=== PATIENT | female | born 1930 | race African-American/Black ===

== ENCOUNTER 2019-07-25 18:01 | Inpatient (IN) | payer OTHER ==
[~2019-07-25] VITALS: Ht 160 cm; Wt 58.4 kg
--- NOTE | ~2019-07-25 | HC ---
[facility] [place] [address] CONSULTATION Name: NADER BOYD Room #: 219-P [facility] IN M.R.#: [id number] Admission: 07/25/19 Attend Phys: Radhames Hyde MD Discharge: Date of : 32 Report #: [id number] THIS REPORT FOR: cc: Ra Landaverde MD, Keninde A. MD Al-Demetrice,Moraima Thornton MD ~ CC: Radhames Landaverde DATE OF SERVICE: 07/26/2019 REASON FOR CONSULTATION: End-stage renal disease. CHIEF COMPLAINT: Chest pain. HISTORY OF PRESENT ILLNESS: This is a very well-known patient to me. She is on end-stage renal disease patient who is maintained on hemodialysis every Tuesday, Tuesday and Tuesday. She is also known to have multiple other comorbid conditions including coronary artery disease. Most of her hospitalizations are at [facility]. She gave the ER physicians history of chest pain; however, she completely denies chest pain when I met with her this morning. She reported that she had dialysis yesterday with 3.5 liters of fluid removed. She went home and had significant dizziness, lightheadedness, symptoms of hypotension. She presented for further evaluation. She denies syncope. No fever or chills. PAST MEDICAL HISTORY: 1. End-stage renal disease, maintained on hemodialysis every Tuesday, Tuesday and Tuesday. 2. Coronary artery disease. 3. Hypertension. 4. Hyperlipidemia. 5. Diabetes mellitus. 6. Status post CVA. 7. Status post left AV fistula with multiple interventions and stents in the past. ALLERGIES: None. REVIEW OF SYSTEMS: GENERAL: No fever or chills, but significant weakness. CARDIOVASCULAR: No chest pain or palpitation. However, she did report chest pain to the ER physician. PULMONARY: No cough or hemoptysis. GASTROINTESTINAL: No nausea or vomiting. GENITOURINARY: No frequency, no urgency. [facility] [address] [place] [address] CONSULTATION Name: NADER BOYD Room #: 219-[facility] IN M.R.#: [id number] Admission: 07/25/19 Attend Phys: Radhames Hyde MD Discharge: Date of : 32 Report #: [id number] MUSCULOSKELETAL: Occasional arthralgias and back pain. NEUROLOGICAL: Significant for headache and lightheadedness. SOCIAL HISTORY: Denies drug or alcohol abuse. Ex-smoker. FAMILY HISTORY: Hypertension. MEDICATIONS: Reported: 1. Atorvastatin. 2. Amlodipine. PHYSICAL EXAMINATION: GENERAL: The patient is alert, oriented, in no apparent distress. VITAL SIGNS: Blood pressure is 114/51. HEAD AND NECK: No jugular venous distention. CHEST: Decreased air entry bilaterally. No crackles. CARDIOVASCULAR: Regular with no rub. Systolic murmur is present. ABDOMEN: Soft, nontender with no hepatosplenomegaly. EXTREMITIES: Lower extremities, no edema. Upper extremities: Left AV fistula. LABORATORY DATA: Values reviewed. Hemoglobin is 11.7. Sodium is 133, potassium is 3.9, BUN is 17, creatinine is 4.6. Chest x-ray reviewed, no acute abnormality. ASSESSMENT, IMPRESSION AND PLAN: 1. End-stage renal disease. 2. Hypertension. 3. Coronary artery disease. 4. The patient's symptoms are likely related to aggressive ultrafiltration with hemodialysis. Troponin has been negative x 3. 5. Obtain her cardiac history from the [facility]. 6. From the renal perspective, I will continue with hemodialysis every Tuesday, Tuesday and Tuesday. By: 0822 0833 Moraima Gill MD /nt
--- NOTE | ~2019-07-25 | EMS ---
[facility] [address] [place] [address] EMS Patient Care Report Name: CHANELLE BOYD Room #: PRE M.R.#: [id number] Admission: Attend Phys: Discharge: Date of : 32 Report #: [id number] THIS REPORT FOR: //name// Report Transmitted: 07/25/2019 17:43 EMS Care Summary [place], [place]/[facility] Incident [id number] @ 07/25/2019 17:24 Incident Location [address] Patient CHANELLE BOYD Female, 88 Years 1930 Patient Address [address] [place] [address] Patient History Hypertension (HTN),Stroke/CVA,Hyperlipidemia,Coronary Artery Bypass Graft (CABG), Patient Allergies No known allergies, Patient Medications Amlodipine, Atorvastatin, Chief Complaint chest pain Disposition Transported No Lights/[place] Dispatch Reason Chest Pain (Non-Traumatic) Transported To [facility] Narrative aos to find a female pt aaox4 abc intact. pt has c/c of chest pain x 1 hour that she described as "strong" and "it feels like my last heart attack". pt [facility] [address] [place] [address] EMS Patient Care Report Name: CHANELLE BOYD Room #: PRE ER M.R.#: [id number] Admission: Attend Phys: Discharge: Date of : 32 Report #: [id number] stated hx of CA, CABG, stroke. obtained vital signs. administered aspirin PO. acquired 12 lead ekg sinus tachycardia w/o ST elevation or depression. pt placed on stretcher and loaded into medic unit. administered nitroglycerin SL. iv access obtained 22 gauge in the right hand. pt transported non-urgently to [facility] pt condition improved en route. upon arrival pt brought to er and pt care was transferred to receiving staff sonographer. Initial Vitals @17:53P: 110, @17:47P: 103, @17:51P: 99, @17:48P: 100,BP: 147/66, @17:53P: 112,BP: 138/56, @17:48P: 103, @17:55P: 106,R: 18,BP: 114/60,Pain: 7/10,GCS: 15,Revised Trauma: 12, @17:38P: 120,R: 18,Pain: 8/10,GCS: 15,Glucose: 257, Assessments @17:31MENTAL:Person Oriented,Time Oriented,Event Oriented,Place Oriented,SKIN:HEENT:Head/Face: No Abnormalities,Neck/Airway: No Abnormalities,LUNG SOUNDS:General: No Abnormalities,ABDOMEN:General: No Abnormalities,PELVIS//GI:No Abnormalities,EXTREMITIES:Left Arm: No Abnormalities,Right Arm: No Abnormalities,Left Leg: No Abnormalities,Right Leg: No Abnormalities,PULSE:NEURO:No Abnormalities, Impression Chest Pain / Discomfort Procedures @17:31ALS AssessmentResponse: UnchangedSucceeded@17:32Aspirin - 324 Milligrams (mg) - OralResponse: Unchanged@17:383-Lead ECGResponse: UnchangedSucceeded@17:42Nitrostat - 0.4 Milligrams (mg) - SublingualResponse: Improved@17:3812-Lead ECGResponse: UnchangedSucceeded@17:50Saline Lock 10cc (22 ga) Site: Hand-RightResponse: UnchangedSucceeded Timeline 17:23,Call Received 17:23,Dispatch Notified 17:24,Dispatched 17:25,En Route 17:30,On Scene 17:31,At Patient 17:31,ALS Assessment,Response: UnchangedSucceeded, 17:32,Aspirin - 324 Milligrams (mg) - Oral,Response: Unchanged 17:38,3-Lead ECG,Response: UnchangedSucceeded, 17:38,12-Lead ECG,Response: UnchangedSucceeded, [facility] [address] [place] [address] EMS Patient Care Report Name: CHANELLE BOYD Room #: PRE M.R.#: [id number] Admission: Attend Phys: Discharge: Date of : 32 Report #: [id number] 17:38,BP: / M,PULSE: 120,RR: 18 R,SPO2: Ox,ETCO2: ,B,PAIN: 8,GCS: 15, 17:42,Nitrostat - 0.4 Milligrams (mg) - Sublingual,Response: Improved 17:47,BP: / M,PULSE: 103,RR: R,SPO2: Ox,ETCO2: ,BG: ,PAIN: ,GCS: , 17:48,BP: / M,PULSE: 103,RR: R,SPO2: Ox,ETCO2: ,BG: ,PAIN: ,GCS: , 17:48,BP: 147/66 M,PULSE: 100,RR: R,SPO2: Ox,ETCO2: ,BG: ,PAIN: ,GCS: , 17:50,Saline Lock 10cc 22 ga Site: Hand-Right,Response: UnchangedSucceeded, 17:50,Depart Scene 17:51,BP: / M,PULSE: 99,RR: R,SPO2: Ox,ETCO2: ,BG: ,PAIN: ,GCS: , 17:53,BP: 138/56 M,PULSE: 112,RR: R,SPO2: Ox,ETCO2: ,BG: ,PAIN: ,GCS: , 17:53,BP: / M,PULSE: 110,RR: R,SPO2: Ox,ETCO2: ,BG: ,PAIN: ,GCS: , 17:55,BP: 114/60 M,PULSE: 106,RR: 18 R,SPO2: Ox,ETCO2: ,BG: ,PAIN: 7,GCS: 15, 17:55,At Destination 18:23,Call Closed Disclaimer v1.1 Copyright 2020 [employer] This EMS Care Summary contains data elements from the applicable legal record (which may be displayed differently). It is designed to provide pertinent information for the following purposes: continuity of care, clinical quality, and state data reporting. The complete legal record is available to ED staff and administrators of the receiving hospital in [employer]'s Patient Tracker. All data is provided "as is."
[2019-07-25 18:36] LABS: HEMOGLOBIN 11.7 gm/dL (12.0-15.0); MCH 28.2 pg (26.0-34.0); MCHC 32.6 g/dL (28.0-37.0); MCV 86.5 fL (80.0-100.0); PLATELET COUNT 187 thou/uL (150-400); RBC 4.16 mil/uL (4.20-5.00); RDW 15.5 % (10.5-14.5); WBC 5.5 thou/uL (4.0-11.0)
[2019-07-25 18:43] LABS: ANION GAP 6 mmol/L (7-16); BUN 17 mg/dL (7-18); CALCIUM 8.5 mg/dL (8.5-10.1); CHLORIDE 94 mmol/L (98-107); CO2 33 mmol/L (21-32); CREATININE 4.6 mg/dL (0.6-1.0); GLUCOSE 140 mg/dL (74-106); POTASSIUM 3.9 mmol/L (3.5-5.1); SODIUM 133 mmol/L (136-145)
[2019-07-25 18:53] LABS: ALBUMIN 3.2 g/dL (3.4-5.0); SGOT 20 U/L (15-37); SGPT 8 U/L (30-65); TOTAL BILIRUBIN 0.4 mg/dL (<0.1-1.0); TOTAL PROTEIN 7.9 g/dL (6.4-8.2); TROPONIN-I <0.06 ng/mL (<0.06)
[2019-07-25 19:00] LABS: ABSOLUTE NEUTROPHILS 2.8 thou/uL (1.4-8.2); PLATELET ESTIMATE NORMAL
[2019-07-25 20:53] VITALS: BP 136/46
[2019-07-25 22:06] LABS: TSH 6.25 uIU/mL (0.358-3.740)
[2019-07-26] VITALS: BP 108/44
[2019-07-26 00:36] LABS: CHOLESTEROL 181 mg/dL (<200); HDL CHOLESTEROL 52 mg/dL (>40); LDL CHOLESTEROL 111 mg/dL (<100); TC:HDL 3.5 Ratio (Not establshd); TRIGLYCERIDE 93 mg/dL (<150); TROPONIN-I <0.06 ng/mL (<0.06); VLDL 19 mg/dL (<40)
[2019-07-26 00:40] LABS: SERUM ASSESSMENT Clear
[2019-07-26] MEDS ORDERED: LIPITOR10 MG PO (01:21)
[2019-07-26] MEDS ORDERED: NORVASC 2.5 MG2.5 M1 PO (01:23)
[2019-07-26 04:43] VITALS: BP 114/51
--- NOTE | 2019-07-26 06:17 | NUR ---
ASSESSMENTS CHARTED, MEDS CHARTED GIVEN. PATIENT ARRIVED AT 2100 FROM ED. PATIENT SETTLED INTO BED, LUNCH BOX GIVEN. PATIENT ADMISSION WAS COMPLETED EXCEPT FOR MED RECONCILIATION THE PATIENT DOES NOT NOT WHAT MEDS SHE TAKES. THE PHOTOCOPYING EQUIPMENT MECHANIC PLACED A MISC. NOTE FOR THE DAY NURSE TO SPEAK WITH FAMILY ABOUT HER MEDS. C/O CHEST PAIN AFTER COUGHING. PATIENT HAS 1/2 INCH OF NITRO PASTE. ED HAS REQUESTED MEDICAL RECORDS FROM [facility] WHERE THE PATIENT NORMALLY GOES. UP AT WILI IN ROOM.
[2019-07-26 08:00] VITALS: BP 106/56
--- NOTE | 2019-07-26 08:37 | EKG ---
[facility] [place] [address] [place] [address] ELECTROCARDIOGRAM REPORT Name: NADER BOYD Room #: 219-P ADM IN M.R.#: [id number] Admission: 07/25/19 Attend Phys: Radhames Hyde MD Discharge: Date of : 32 Report #: [id number] THIS REPORT FOR: cc: Ra Landaverde MD, Keninde A. MD Lundgren,Shant Mares MD [facility] ~ THIS REPORT FOR: //name// [facility] ED Test Date: 2019-07-25 Test Time: 18:04:00 Pat Name: NADER BOYD Department: Room: 219 Gender: F Director Speech: jg : 1930 Requested By: Ana Jones Order Number: [id number] MD: Shant Gonzalez Measurements Intervals [place] Rate: 95 P: 90 [place]: 147 QRS: 54 QRSD: 80 T: 20 QT: 336 QTc: 423 Interpretive Statements Sinus rhythm Frequent premature ventricular complexes Probable anteroseptal infarct, old Borderline repolarization abnormality No previous ECG available for comparison Electronically Signed On 07-26-2019 8:36:31 DIRECTOR OF SUSTAINABLE DESIGN by Shant Gonzalez [email or web address] <ELECTRONICALLY SIGNED> By: Shant Gonzalez MD, [facility] 07/26/19 0836 1804 1804 Shant Gonzalez MD, [facility] /EPI
--- NOTE | 2019-07-26 10:36 | NUR ---
ASSUMED CARE OF PT AT SHIFT CHANGE. A&0X4, AMB INDEPENDENTLY AND STEADILY. USES CALL LIGHT FOR NEEDS. IV LEAKING, CALLED IV TEAM NONE OF THE STAFF COULD RE-START; DIALYSIS PT. BECAME NPO IMMEDIATELY FOR STRESS TEST THEN CALLED TO LET THEM KNOW IV TEAM WOULD BE BY THIS AFTERNOON TO RESTART IV. THEY RESCHEDULED HER FOR A.M. NPO P 23:55 THIS EVENING. CALLED CARDIOLOGY TO GIVE HEADS UP. DISCOVERED, WHEN I PRINTED TELE STRIP, PT HAS ROOM #200 TELE BOX. ALSO DISCOVERED PT WAS NEEDING TO BE MOVED TO ROOM 217. PT KEPT ABREAST OF EVENTS/CHANGES. CAN EAT NOW AND WILL UPON RETURN FROM ECHO. SEE SEPARATE INTERVENTIONS FOR ASSESSMENTS. ENCOURAGED HER TO USE CALL LIGHT FOR ANY NEEDS. DIALYSIS PT , , AND TUESDAY.
--- NOTE | 2019-07-26 11:13 | 2DMMODE ---
[facility] [place] [address] 2 D/M-MODE ECHOCARDIOGRAM Name: NADER BOYD Room #: 219-P ADM IN M.R.#: [id number] Admission: 07/25/19 Attend Phys: Radhames Hyde MD Discharge: Date of : 32 Report #: [id number] THIS REPORT FOR: cc: Ra Landaverde MD, Keninde A. MD Lammoglia, Francisco J. MD ~ APPROVED REPORT Study performed: 07/26/2019 09:55:24 EXAM: Comprehensive 2D, Doppler, and color-flow Echocardiogram Patient Location: Echo lab Room #: 219 Status: routine BSA: 1.61 HR: 69 bpm BP: 114/51 mmHg Rhythm: NSR/ PVCs Other Information Study Quality: Excellent Indications Chest Pain Hx: CABG, HTN, HLP, COPD, CVA 2D Dimensions RVDd: 45.86 mm IVSd: 10.05 (7-11mm) LVOT Diam: 19.78 (18-24mm) LVDd: 37.44 mm PWd: 11.66 (7-11mm) Ascending Ao: 21.64 (22-36mm) LVDs: 19.04 (25-40mm) Aortic Root: 27.50 mm IVC: 8.00 mm Volumes Left Atrial Volume (Systole) Single Plane 4CH: 61.04 mL Single Plane 2CH: 61.08 mL LA ESV Index: 42.00 mL/m2 Aortic Valve AoV Peak Jann.: 1.55 m/s AO Peak Gr.: 9.60 mmHg LVOT Max P.68 mmHg LVOT Max V: 1.08 m/s MURPHY Vmax: 2.14 cm2 [facility] [email or web address] [address] 2 D/M-MODE ECHOCARDIOGRAM Name: NADER BOYD [place] Room #: 219-P [facility] IN .R.#: [id number] Admission: 07/25/19 Attend Phys: Radhames Hyde, Discharge: Date of : 32 Report #: [id number] Mitral Valve E/A Ratio: 1.0 MV Decel. Time: 273.46 ms MV E Max Jann.: 0.84 m/s MV A Jann.: 0.81 m/s MV PHT: 79.30 ms IVRT: 55.36 ms Pulmonary Valve PV Peak Jann.: 1.13 m/s PV Peak Gr.: 5.12 mmHg Pulmonary Vein P Vein S: 0.55 m/s P Vein A: 0.21 m/s P Vein D: 0.42 m/s P Vein A Dur.: 96.9 msec P Vein S/D Ratio: 1.31 Tricuspid Valve TR Peak Jann.: 3.68 m/s RAP Estimate: 5.00 mmHg TR Peak Gr.: 54.20 mmHg PA Pressure: 59.00 mmHg Left Ventricle The left ventricle is normal size. There is normal LV segmental wall motion. Mild basal septal hypertrophy is present. Left ventricular systolic function is hyperdynamic. LVEF is 65-70%. Grade I - abnormal relaxation pattern. Right Ventricle The right ventricle is normal size. The right ventricular systolic function is normal. Atria Left atrium is moderately dilated. Right atrium is at the upper limits of normal. Aortic Valve The aortic valve is normal in structure. Leaflets are sclerotic. No aortic regurgitation is present. There is no aortic valvular stenosis. Mitral Valve The mitral valve is normal in structure. Mild to moderate mitral regurgitation. No evidence of mitral valve stenosis. Tricuspid Valve [facility] [address] [place] [address] 2 D/M-MODE ECHOCARDIOGRAM Name: NADER BOYD Room #: 219-P [facility] IN M.R.#: [id number] Admission: 07/25/19 Attend Phys: Radhames Hyde, Discharge: Date of : 32 Report #: [id number] The tricuspid valve is normal in structure. Moderate tricuspid regurgitation. Estimated PAP is 60mmHg. Pulmonic Valve The pulmonary valve is normal in structure. There is no pulmonic valvular regurgitation. Great Vessels The aortic root is normal in size. The ascending aorta is normal in size. IVC is normal in size and collapses >50% with inspiration. Pericardium There is no pericardial effusion. <Conclusion> LVEF is 65-70%. Left atrium is moderately dilated. Right atrium is at the upper limits of normal. The aortic valve is normal in structure. Leaflets are sclerotic. The mitral valve is normal in structure. Mild to moderate mitral regurgitation. The tricuspid valve is normal in structure. Moderate tricuspid regurgitation. Estimated PAP is 60mmHg. There is no pericardial effusion. <ELECTRONICALLY SIGNED> By: Kodi Benoit MD 07/26/19 1111 1111 1111 Kodi Benoit MD /INF
[2019-07-26 12:00] VITALS: BP 128/72
--- NOTE | 2019-07-26 13:13 | NUR ---
Nutrition: Pt seen d/t consult for dialysis/renal diet. Admit with chest pain which began during hemodialysis. CP seems to be related to aggressive ultrafiltration with HD or possible bronchitis. Hx CAD, CABG, HTN, HLD, DM, COPD. No intake records yet but had completed approx 80% of lunch at this assess. Reports great appetite. Current wt consistent with reported UBW of 130#, weighs herself at home. Denies edema between MWF maintenance dialysis. PCM indicated, will defer malnutrition Dx at this time. Meds reviewed, no phos binder noted. Labs: LDL 111, Alb 3.2, Na 133, Cl 94. No Phos lab but K+ WNL. Renal diet restriction not indicated at this time. Consider low nutrition risk. Provided Nutrition Care Manual dialysis nutrition therapy packet, Pt seemed to be familiar with information.
--- NOTE | 2019-07-26 14:40 | NUR ---
MED REC: NIGHT NURSE WHO ADMITTED PT STATED HER FAMILY NEEDED TO BE CALLED TO GET ALL HER CORRECT MEDS ON BOARD. CALLED SON AND THERE'S NO CAPABILITY TO LEAVE VOICE MAIL. LET PT KNOW, SHOULD ANYONE CALL HER, TO USE CALL LIGHT SO WE CAN RECONCILE MED LIST. SHE AGREED
--- NOTE | 2019-07-26 16:26 | NUR ---
Case opened to follow for dc planning needs. Director Of Home Economics visited with the pt at bedside. She is resting and no family here currently. She reports she has lived in a 3rd floor apt in the same complex as her son Bib about a month ago. Her son Oscar is remodeling her home and she is hoping to move back there at some point. There is an elevator in the complex . She reports she is independent with gait and adl's and uses 3liters of o2 at home. She states she can not recall the company name. She goes to dialysis MWF and her sons and nieces help drive her to appts and do errands for her. She has had some HH in the past but can not recall the company name. She noted that her son Oscar is her primary contact and he can provide that information. Message left for Oscar to contact cm with dialysis clinic and o2 provider. Her p[place] is [place]verde [place] [facility] [place]. She was there a few week ago. Will ask for therapy evals and assess for possible hh referral at mo.
[2019-07-26 16:30] VITALS: BP 102/74
[2019-07-26 19:33] VITALS: BP 132/46
[2019-07-26 23:07] LABS: GLYCOHEMOGLOBIN (HGB A1C) 5.9 % (4.8-5.6)
[2019-07-27 04:13] VITALS: BP 111/46
--- NOTE | 2019-07-27 04:42 | NUR ---
ASSESSMENT DOCUMENTED.PT BEEN RESTING IN NO ACUTE DISTRESS.VSS.A/OX4.NSR ON MONITOR.NPO AFTER MIDNOC FOR STRESS TEST TODAY.PT DENIES ANY NEEDS AT THIS TIME.
[2019-07-27 08:12] VITALS: BP 119/58
--- NOTE | 2019-07-27 11:21 | NUR ---
Pt's dialysis clinic is [facility] [facility]. Pt is getting dialysis today. Nursing reaching out to pt's sons to verify home meds. DC paraplanner to fax h/p to [facility] clinic.
--- NOTE | 2019-07-27 11:51 | NUR ---
ORDERS RECEIVED FOR PT EVAL AND TREAT. Pt GETTING READY TO START DIALYSIS. PER RN AND Pt, Pt HAS BEEN UP AD WILI WALKING IN THE HALLWAYS. Pt STATED, 'I'M GOOD AT WALKING.' AOX4. LIVES IN 3RD FLOOR APT WITH ELEVATOR ACCESS. DOES NOT USE GAIT AIDS. ONE OF HER SONS LIVES IN THE SAME APT COMPLEX. INDEP WITH ADLs AT BASELINE. Pt DECLINED NEED FOR PT AT THIS TIME. Pt UNDERSTANDING THAT PT IS AVAILABLE IF NEEDED WHILE IN-HOUSE. ACUTE PT TO SIGN OFF AT THIS TIME.
[2019-07-27 12:00] VITALS: BP 126/59
--- NOTE | 2019-07-27 13:19 | NUR ---
ASSUMED CARE AT 0700, STRESS TEST CANCELLED FOR THIS AM, PT CAN EAT AND DRINK. REPORTED PAIN, PRN PIAN MED GIVEN WITH SOME RELIEF. CARDIOLOGY HAS SIGNED OFF ON THE PATIENT. GETTING DIALYSIS THIS AM. WILL CONITNUE TO ASSESS AND ASSIST WITH ADLs NEEDED.
--- NOTE | 2019-07-27 13:55 | NUR ---
FAXED CLINICAL UPDATE TO [facility] RECEIVED CONFIRMATION IF PT SHOULD DC OVER WEEKEND PLEASE FAX DC SUMMARY TO [facility] FAX#[phone].
--- NOTE | 2019-07-27 15:24 | NUR ---
ASSUMED CARE OF PT APPROX 1430, SHE IS A&0X4, WEARS 02 AT HOME AND HERE, RT TX, COUGH, COLORED SPUTUM, DX BRONCHITIS, C/O PAIN ALL OVER AND ARTHRITIS IN HER HANDS. HAD BM, SEE SEPARATE INTERVENTIONS FOR ASSESSMENTS. AMB INDEPENDENTLY. STATES SHE HAD A LOT OF COMPANY THIS A.M. ENCOURAGED HER TO USE THE CALL LIGHT FOR ANY NEEDS
[2019-07-27 15:47] VITALS: BP 107/42
[2019-07-27 15:58] VITALS: BP 107/42
--- NOTE | 2019-07-27 15:59 | NUR ---
Possible dc home this weekend. Pt has home o2 in place and cleared by PT for dc home. Pt to resume her normally outpt dialysis on Tuesday. Weekend staff to fax flow sheets and dc summary to [facility] at [phone].
[2019-07-27 19:15] VITALS: BP 108/42
--- NOTE | 2019-07-28 03:19 | NUR ---
ASSESSMENT DOCUMENTED.PT BEEN RESTING IN NO ACUTE DISTRESS.A/OX4.VSS.DENIES ANY PAIN OR ANY DISTRESS.ANTICIPATING DISCHARGE TODAY.WILL CONTINUE TO MONITOR PER POC.
[2019-07-28 04:45] VITALS: BP 148/84
[2019-07-28 05:54] LABS: CALCIUM 8.6 mg/dL (8.5-10.1); CREATININE 5.4 mg/dL (0.6-1.0); MAGNESIUM 2.1 mg/dL (1.8-2.4)
[2019-07-28 06:02] LABS: HEMATOCRIT 33.8 % (37.0-47.0); HEMOGLOBIN 10.7 gm/dL (12.0-15.0); MCH 27.6 pg (26.0-34.0); MCHC 31.7 g/dL (28.0-37.0); MCV 87.3 fL (80.0-100.0); RBC 3.87 mil/uL (4.20-5.00); WBC 4.8 thou/uL (4.0-11.0)
[2019-07-28 07:20] VITALS: BP 116/52
--- NOTE | 2019-07-28 08:29 | NUR ---
ASSUMED CARE OF PT AT SHIFT CHANGE, WOKE UP AT 0300 AND HAS BEEN AWAKE SINCE THEN. SHE AWAKENS AT THAT TIME AT HOME WELL. A&0X4, AMB INDEPENDENTLY, DIALYSIS PT, USES CALL LIGHT FOR NEEDS, GOOD APPETITE, URINATES ONLY TWICE A DAY SHE REPORTS. HAS BEEN DOING DIALYSIS FOR SIX YEARS. C/O GENERALIZED ACHES/PAINS D/T ARTHRITIS. SAYS HER CHESTS HURTS FROM COUGHING, SEE SEPARATE INTERVENTIONS FOR ASSESSMENTS. WILL CONTINUE TO MONITOR
[2019-07-28 11:00] VITALS: BP 120/41
[2019-07-28 17:00] VITALS: BP 124/55
[2019-07-28 19:09] VITALS: BP 123/47
--- NOTE | 2019-07-28 23:55 | NUR ---
ASSESSMENT: PT REMAIN ALERT AND ORIENT TIMES FOUR. HUGHES. DENIES PAIN, SOB AND N/V. SR PER MONITOR. VSS, AFEBRILE. ALERT AND ORIENT TIMES FOUR. UP AD WILI. VSS, AFEBRILE. LEFT UPPER ARM FISTULA +BRUIT AND THRILL. STATE THAT SHE DID NOT NEED ANYTHING AT THIS TIME. SLOW PROGRESS TOWARDS DC GOALS. WILL CONTINUE TO MONITOR.
[2019-07-29 04:44] VITALS: BP 149/91
[2019-07-29 07:00] VITALS: BP 144/55
[2019-07-29 11:30] VITALS: BP 152/55
[2019-07-29 16:00] VITALS: BP 128/53
[2019-07-29 18:23] VITALS: BP 128/53
--- NOTE | 2019-07-29 18:48 | NUR ---
ASSUMED CARE OF PT AT SHIFT CHANGE. ASSESSMENTS CHARTED. MEDS GIVEN PER JUL. NO C/O PAIN OR SOA. VSS. UP AD WILI. ON 2L NC. PLAN FOR DISCHARGE TOMORROW. DIALYSIS ALSO PLANNED FOR TOMORROW. WILL CONTINUE TO MONITOR AND FOLLOW POC.
--- NOTE | 2019-07-29 19:08 | NUR ---
ASSUMED CARE OF PT AT SHIFT CHANGE. ASSESSMENTS CHARTED. MEDS GIVEN PER JUL. PT A&OX4, UP AD WILI. NO C/O PAIN. C/O NAUSEA TREATED WITH ZOFRAM WITH RELIEF. WAITING ON PULM CONSULT. DIALYSIS MWF. PLAN TO DISCHARGE TOMORROW. WILL CONTINUE TO MONITOR AND FOLLOW POC.
[2019-07-29 19:56] VITALS: BP 141/57
[2019-07-30] VITALS (7 sets, daily range): BP systolic 107–148; BP diastolic 41–59
--- NOTE | 2019-07-30 04:49 | NUR ---
ASSESSMENTS CHARTED, MEDS GIVEN CHARTED. PATIENT IS UP AT WILI IN ROOM. SINUS RHYTHM ON TELEMETRY, LUNGS CLEAR. ORDER FOR DIALYSIS THIS MORNING PRIOR TO DISCHARGE. PT HAS LEFT UPPER ARM FISTULA.
[2019-07-30] MEDS ORDERED: PULMICORT0.5 MG/22 INH (12:19)
[2019-07-30] MEDS ORDERED: MUCINEX600 MG PO (12:20)
[2019-07-30] MEDS ORDERED: VITAMIN B-12500 MCG PO (12:21)
[2019-07-30] MEDS ORDERED: SPIRIVA INH (12:30)
[2019-07-30] MEDS ORDERED: PREDNISONE 10 M10 MG PO (12:31)
[2019-07-30] MEDS ORDERED: LEVAQUIN 500 M500 M7 PO (12:57)
--- NOTE | 2019-07-30 14:27 | NUR ---
FAXED REFERRAL TO [facility] SPOKE WITH HERNAN IN INTAKE SHE RECEIVED REFERRAL AND CAN ACCEPT. PT TO DC TODAY.
--- NOTE | 2019-07-30 15:21 | NUR ---
Discussed HH with patient. She reports she rec [facility] in past and would like to use again. Verified her address. She is also in need of nebulizer for home. Order/script sent to [facility]. Sp with [facility] who reports they will deliver to home later today.
--- NOTE | 2019-07-30 16:18 | NUR ---
FAXED DC ORDERS/SUMMARY TO [facility] SPOKE WITH HERNAN IN INTAKE SHE RECEIVED ORDERS AND THEY WILL NOTIFY PT TIME OF VISITS.
[2019-07-31 03:10] VITALS: BP 139/38
[2019-07-31 08:00] VITALS: BP 119/39
[2019-07-31 09:31] VITALS: BP 107/42
--- NOTE | 2019-07-31 09:51 | NUR ---
PT DID TWO LAPS AROUND NURSING STATION. DENIES SOA. O2 SAT ASSESSED TO BE 97% ON RA.
[2019-07-31 10:30] VITALS: BP 107/42
[2019-07-31] MEDS ORDERED: TRAMADOL 50 MG50 MG PO (12:00)
--- NOTE | 2019-07-31 12:54 | NUR ---
PT CARE ASSUMED APPROX 0700. PT UP WITH STEADY GAIT. VSS. ASSESSMENT A CHARTED. DISCHARGE ORDERS PLACED AND AGREEABLE TO GO HOME AFTER HIP XRAY WAS NEGATIVE. DISCHARGE PAPERWORK REVIEWED WITH PT AND HER SON. BOTH DENIED QUESTIONS AND CONCERNS REGARDING POST HOSPITAL CARES AND F/U. IV OUT, TELE BOX OFF. TRANSPORTATION SERVICES ESCORTED PT OUT VIA WHEELCHAIR.
--- NOTE | 2019-07-31 13:36 | NUR ---
patient to dc home today. [facility] care notified of dc. [facility] notified of [place] for delivery of nebulizer
--- NOTE | 2019-07-31 14:04 | NUR ---
PT DISCHARGING TODAY TO HOME WITH [facility] FAXED DC ORDERS TO [facility] SPOKE WITH HERNAN IN INTAKE SHE RECEIVED DC ORDERS AND WILL NOTIFY PT TIME OF VISITS. FAXED DC ORDERS AND DIALYSIS FLOWSHEETS TO [facility] RECEIVED CONFIRMATION AND SPOKE WITH VLAD AT [facility] SHE WILL GIVE INFO TO INTAKE.
== END 2019-07-31 12:59 | disposition home health service (06) | DRG 189 ==
LOC: ER 18:01 → 2N 20:01 → EROBS 20:01 → 2N 21:00 → ENTRNSPT 07-31 12:44 → EDTRNSPTSTS 07-31 12:46 → 2N 07-31 12:59
PROVIDERS: Nurse Practitioner; Physician Assistant; ADMIT Internal Medicine
PROC: 5A1D70Z Performance of Urinary Filtration, Intermittent, Less than 6 Hours Per Day (ICD-10-PCS; principal; 2019-07-25)
DX: J96.21 Acute and chronic respiratory failure with hypoxia (principal); N18.6 End stage renal disease; I12.0 Hypertensive chronic kidney disease with stage 5 chronic kidney disease or end stage renal disease; E46 Unspecified protein-calorie malnutrition; J43.9 Emphysema, unspecified; J40 Bronchitis, not specified as acute or chronic; I25.10 Atherosclerotic heart disease of native coronary artery without angina pectoris; E11.22 Type 2 diabetes mellitus with diabetic chronic kidney disease; E78.5 Hyperlipidemia, unspecified; E03.9 Hypothyroidism, unspecified; R07.81 Pleurodynia; D63.8 Anemia in other chronic diseases classified elsewhere; E53.8 Deficiency of other specified B group vitamins; G47.00 Insomnia, unspecified; J02.9 Acute pharyngitis, unspecified; Z86.73 Personal history of transient ischemic attack (TIA), and cerebral infarction without residual deficits; Z95.1 Presence of aortocoronary bypass graft; Z99.81 Dependence on supplemental oxygen; Z87.891 Personal history of nicotine dependence; Z68.22 Body mass index [BMI] 22.0-22.9, adult; Z99.2 Dependence on renal dialysis; Z79.899 Other long term (current) drug therapy
CPT/HCPCS: 10081; 32100

== ENCOUNTER 2019-08-02 20:42 | Emergency (ER) | payer OTHER ==
[~2019-08-02] VITALS: Ht 157.5 cm; Wt 59.0 kg
[~2019-08-02 20:42] MED LIST: LEVAQUIN 500 M500 M7 PO; LIPITOR10 MG PO; MUCINEX600 MG PO; NORVASC 2.5 MG2.5 M1 PO; PREDNISONE 10 M10 MG PO; PULMICORT0.5 MG/22 INH; SPIRIVA INH; TRAMADOL 50 MG50 MG PO; VITAMIN B-12500 MCG PO
[2019-08-02 21:29] LABS: HEMOGLOBIN 10.7 gm/dL (12.0-15.0); MCH 28.6 pg (26.0-34.0); MCHC 33.4 g/dL (28.0-37.0); MCV 85.8 fL (80.0-100.0); PLATELET COUNT 268 thou/uL (150-400); RBC 3.73 mil/uL (4.20-5.00); RDW 15.5 % (10.5-14.5); WBC 6.7 thou/uL (4.0-11.0)
[2019-08-02 21:36] LABS: ANION GAP 6 mmol/L (7-16); BUN 43 mg/dL (7-18); CALCIUM 7.5 mg/dL (8.5-10.1); CHLORIDE 94 mmol/L (98-107); CO2 30 mmol/L (21-32); CREATININE 6.2 mg/dL (0.6-1.0); GLUCOSE 156 mg/dL (74-106); POTASSIUM 5.2 mmol/L (3.5-5.1); SODIUM 130 mmol/L (136-145)
[2019-08-02 21:44] LABS: MAGNESIUM 1.8 mg/dL (1.8-2.4); TROPONIN-I <0.06 ng/mL (<0.06)
[2019-08-02 22:22] LABS: ABSOLUTE NEUTROPHILS 3.1 thou/uL (1.4-8.2); ANISOCYTOSIS 1+; LARGE PLATELETS FEW
[2019-08-03 00:35] VITALS: BP 118/49
--- NOTE | 2019-08-03 09:28 | EKG ---
[facility] [place] [address] ELECTROCARDIOGRAM REPORT Name: NADER BOYD Room #: DEP [facility].#: [id number] Admission: 08/02/19 Attend Phys: Discharge: 08/03/19 Date of : 34 Report #: [id number] THIS REPORT FOR: cc: SABRINA - No family physician/PCP FAM - No family physician/PCP Shant Gonzalez MD [facility] THIS REPORT FOR: //name// [facility] ED Test Date: 2019-08-02 Test Time: 20:51:10 Pat Name: NADER BOYD Department: Room: Gender: F Trimmer Helper: [facility] : 1930 Requested By: Carol Burt Order Number: [id number] MD: Shant Gonzalez Measurements Intervals [place] Rate: 82 P: 70 ME: 150 QRS: 34 QRSD: 74 T: 76 QT: 364 QTc: 425 Interpretive Statements Sinus rhythm Anterior infarct, old Compared to ECG 07/25/2019 18:04:00 Ventricular premature complex(es) no longer present Electronically Signed On 08-03-2019 9:27:03 CDT by Shant Gonzalez [email or web address] <ELECTRONICALLY SIGNED> By: Shant Gonzalez MD, FACC 08/03/19 0927 50 50 Shant Gonzalez MD, [facility] /EPI
== END 2019-08-03 00:15 | disposition home or self-care (01) ==
LOC: ER 20:42
PROVIDERS: Emergency Medicine Emergency Medical Services
DX: R07.89 Other chest pain (principal); E83.51 Hypocalcemia; I10 Essential (primary) hypertension; E11.9 Type 2 diabetes mellitus without complications; E78.5 Hyperlipidemia, unspecified; J44.9 Chronic obstructive pulmonary disease, unspecified; Z99.81 Dependence on supplemental oxygen; Z95.1 Presence of aortocoronary bypass graft

== ENCOUNTER 2020-01-05 22:20 | Inpatient (IN) | payer OTHER ==
[~2020-01-05] VITALS: Ht 160 cm; Wt 54.8 kg
[2020-01-05 22:24] VITALS: BP 179/73
[2020-01-05 23:02] LABS: HEMATOCRIT 33.5 % (37.0-47.0); HEMOGLOBIN 11.1 gm/dL (12.0-15.0); MCH 26.3 pg (26.0-34.0); MCHC 33.1 g/dL (28.0-37.0); MCV 79.4 fL (80.0-100.0); PLATELET COUNT 259 thou/uL (150-400); RBC 4.22 mil/uL (4.20-5.00); RDW 19.1 % (10.5-14.5); WBC 6.8 thou/uL (4.0-11.0)
[2020-01-05 23:04] LABS: ANION GAP 13 mmol/L (7-16); BUN 24 mg/dL (7-18); CALCIUM 8.7 mg/dL (8.5-10.1); CHLORIDE 92 mmol/L (98-107); CO2 27 mmol/L (21-32); CREATININE 6.1 mg/dL (0.6-1.0); GLUCOSE 130 mg/dL (74-106); POTASSIUM 3.7 mmol/L (3.5-5.1); SODIUM 132 mmol/L (136-145)
[2020-01-05 23:15] LABS: ALBUMIN 3.6 g/dL (3.4-5.0); LIPASE 189 U/L (73-393); SGOT 29 U/L (15-37); SGPT 12 U/L (30-65); TOTAL BILIRUBIN 0.5 mg/dL (0.2-1.0); TOTAL PROTEIN 8.1 g/dL (6.4-8.2); TROPONIN-I <0.06 ng/mL (<0.06)
[2020-01-05 23:37] LABS: ABSOLUTE NEUTROPHILS 2.7 thou/uL (1.4-8.2); ANISOCYTOSIS 2+; LARGE PLATELETS OCCASIONAL; POLYCHROMASIA 1+
[2020-01-06] VITALS (8 sets, daily range): BP systolic 127–166; BP diastolic 46–73
--- NOTE | 2020-01-06 05:14 | NUR ---
Pt was an ER admit who waa admitted with chest pain. Upon arrival to the floor, pt continued to verbalized chest pain. Pt is stable. Pt is seen by FRONT END ASSISTANT.No sign of distress noted in pt. Admission assessment and data completed. Scheduled meds administered to pt. Pt is stable. No acute events overnight. Denies any further needs at this time
--- NOTE | 2020-01-06 10:27 | EKG ---
[facility] [place] [address] ELECTROCARDIOGRAM REPORT Name: NADER BOYD Room #: 205-P ADM IN M.R.#: [id number] Admission: 01/06/20 Attend Phys: Demar Guidry MD Discharge: Date of : 34 Report #: [id number] THIS REPORT FOR: cc: SABRINA - No family physician/PCP FAM - No family physician/PCP Shant Gonzalez MD [facility] THIS REPORT FOR: //name// [facility] ED Test Date: 2020-01-05 Test Time: 22:27:57 Pat Name: NADER BOYD Department: Room: [facility] Gender: F New Business Clerk: STOLED : 1930 Requested By: Petros Thompson Order Number: [id number] MD: Shant Gonzalez Measurements Intervals [place] Rate: 100 P: 65 UT: 168 QRS: 35 QRSD: 100 T: 58 QT: 382 QTc: 493 Interpretive Statements Sinus tachycardia Ventricular premature and atrial complexes Probable anteroseptal infarct, age indeterminate Baseline wander in lead(s) V1 Compared to ECG 08/02/2019 20:51:10 Ventricular and atrial premature complex(es) now present Electronically Signed On 01-06-2020 10:27:34 CDT by Shant Gonzalez [email or web address] <ELECTRONICALLY SIGNED> By: Shant Gonzalez MD, FAC 01/06/20 1027 26 26 Shant Gonzalez MD, [facility] /EPI
--- NOTE | 2020-01-06 10:31 | EKG ---
[facility] [place] [address] ELECTROCARDIOGRAM REPORT Name: NADER BOYD Room #: 205-P ADM IN M.R.#: [id number] Admission: 01/06/20 Attend Phys: Demar Guidry MD Discharge: Date of : 32 Report #: [id number] THIS REPORT FOR: cc: SABRINA - No family physician/PCP FAM - No family physician/PCP Shant Gonzalez MD [facility] THIS REPORT FOR: //name// [facility] Test Date: 2020-01-06 Test Time: 07:26:44 Pat Name: NADER BOYD Department: Room: 205 Gender: F Processing Rep: MIKKI : 1930 Requested By: Isabel Estrada Order Number: [id number] MD: Shant Gonzalez Measurements Intervals [place] Rate: 88 P: 55 CA: 164 QRS: 37 QRSD: 82 T: 83 QT: 390 QTc: 472 Interpretive Statements Sinus rhythm Atrial premature complex Anteroseptal infarct, old Compared to ECG 01/05/2020 22:27:57 Sinus tachycardia no longer present Ventricular premature complex(es) no longer present Electronically Signed On 01-06-2020 10:30:48 CDT by Sahnt Gonzalez [email or web address] <ELECTRONICALLY SIGNED> By: Shant Gonazlez MD, [facility] 01/06/20 1030 5 5 Shant Gonzalez MD, [facility] /EPI
--- NOTE | 2020-01-06 15:58 | NUR ---
ASSESSMENT CHARTED. PT ALERT AND ORIENTED WITH FORGETFULNESS. RT TREATMENT PROVIDED ORDERED. DENIED HAVING CHEST PAIN THIS SHIFT. NEW ORDERS NOTED. FALL PRECAUTION IN PLACE. WILL CONTINUE TO MONITOR.
[2020-01-07] VITALS (7 sets, daily range): BP systolic 134–166; BP diastolic 65–94
--- NOTE | 2020-01-07 05:18 | NUR ---
ASSESSMENT DOCUMENTED.PT BEEN RESTING IN NO ACUTE DISTRESS.A/OX4.VSS.PT ADMITTED WITH C/O CHEST PAIN.DENIES CHEST PAIN THIS SHIFT OR ANY DISCOMFORT.NSR ON MONITOR.ON O2 AT 2LITERS PNC.INTERMITTENT COUGH.LUNGS CLEAR .BRIAN FISTULA WITH POSITIVE THRILL AND BRUILL.PT TO HAVE DIALYSIS TODAY.
[2020-01-07 05:19] LABS: ANION GAP 13 mmol/L (7-16); BUN 44 mg/dL (7-18); CALCIUM 7.9 mg/dL (8.5-10.1); CHLORIDE 89 mmol/L (98-107); CO2 25 mmol/L (21-32); GLUCOSE 212 mg/dL (74-106); POTASSIUM 4.4 mmol/L (3.5-5.1); SODIUM 127 mmol/L (136-145)
[2020-01-07 05:24] LABS: CREATININE 8.7 mg/dL (0.6-1.0)
[2020-01-07 05:28] LABS: ALBUMIN 3.4 g/dL (3.4-5.0); TROPONIN-I <0.06 ng/mL (<0.06)
--- NOTE | 2020-01-07 07:26 | HC ---
[facility] [address] CONSULTATION Name: NADER BOYD Room #: 205-P ADM IN M.R.#: [id number] Admission: 01/06/20 Attend Phys: Demar Guidry MD Discharge: Date of : 32 Report #: [id number] THIS REPORT FOR: cc: SABRINA - No family physician/PCP SABRINA - No family physician/PCP Ward Santiago MD ~ CC: SABRINA physician/PCP Demar Guidry DATE OF SERVICE: 01/06/2020 NEPHROLOGY CONSULTATION REASON FOR CONSULTATION: End-stage renal disease requiring hemodialysis. HISTORY OF PRESENT ILLNESS: This is a very pleasant 89-year-old lady who has been a chronic hemodialysis patient for many years. She normally dialyzes on a Tuesday, Tuesday, Tuesday basis. She last dialyzed 2 days ago on 01/04/2020 and that was uncomplicated. She presented to the Emergency Room in the middle of the night complaining of chest pain. She states this started yesterday. It felt like her usual chest pain. She has a history of coronary artery disease with prior coronary artery bypass graft surgery. She said she had run out of nitroglycerin and took none. She came into the Emergency Room and troponin was less than 0.06 on 2 separate checks. EKG was unremarkable for ischemia. This morning as I talk to her, she is continuing to have chest pain, but it is associated with cough. She thinks she started coughing yesterday. This was not mentioned in the Emergency Room note. She has been afebrile. COVID test was run, but that is still pending. I reviewed her chest x-ray and it shows no infiltrate. She has not had any sputum production. PAST MEDICAL HISTORY: End-stage renal disease, on chronic hemodialysis. Again, she has had a prior coronary artery bypass graft surgery. She has some underlying COPD. She has some hypertension, diabetes. She has had a prior CVA. REPORTED MEDICATIONS: Include atorvastatin 20 mg daily and amlodipine 2.5 mg daily. Unfortunately, I do not have the complete list. ALLERGIES: No known medical allergies. SOCIAL HISTORY: The patient is a . She lives in [place], [place]. She lives with a son. REVIEW OF SYSTEMS: Appetite has been fair. Denies nausea or vomiting. Says her dialysis went fine on her last dialysis session, has not had recent edema. She is unaware of fevers, chills or sweats. She denies nausea, vomiting, diarrhea or change in smell or taste. [facility] [address] [place] [address] CONSULTATION Name: NADER BOYD Room #: 205-P [facility] IN M.R.#: [id number] Admission: 01/06/20 Attend Phys: Demar Guidry MD Discharge: Date of : 32 Report #: [id number] PHYSICAL EXAMINATION: GENERAL: Elderly appearing female, awake and alert, but coughing throughout much of my talk with her and during the exam and clenching her chest when she coughs. VITAL SIGNS: Blood pressure 137/49, heart rate 97, temperature 97.7, oxygen saturation 99% on O2. HEENT: Shows pupils equal and reactive. Sclerae nonicteric. Oral mucosa is moist. NECK: Veins are not distended. Neck shows supple, without adenopathy. CHEST: Clear bilaterally. HEART: Has a regular rate and rhythm, no gallop. ABDOMEN: Has active bowel sounds, is nontender. EXTREMITIES: Show no peripheral edema. She has a left upper arm dialysis access in place with active flow. Chest x-ray shows no infiltrates. LABORATORY DATA: Sodium 132, potassium 3.7, chloride 92, bicarbonate 27, BUN 24, creatinine 6.1, glucose 130, calcium 8.7, total protein 8.1, albumin 3.6. Troponin less than 0.06. White count 6.8, hemoglobin 11.1, hematocrit 33.5, platelets 259,000. ASSESSMENT: 1. End-stage renal disease. She dialyzed 2 days ago. Her next dialysis will be tomorrow . Her volume is good. Potassium is fine. No indication at this point for emergent dialysis. 2. Chest pain. History of coronary artery disease. Troponin is negative. As I examined her, she is having a cough and pleuritic type chest pain. Does not appear to be cardiac at this time. I am more concerned about her cough with the prevalence of COVID-19 in the community. We will await to COVID test. 3. Hypertension, currently controlled. 4. Chronic obstructive pulmonary disease, on oxygen. PLAN: 1. I will order dialysis tomorrow. 2. Await the COVID test. 3. We will follow along the care of this pleasant patient. <ELECTRONICALLY SIGNED> By: Ward Santiago MD 01/07/20 0726 0929 0939 Ward Santiago MD /nt
--- NOTE | 2020-01-07 11:04 | 2DMMODE ---
[address] [address] 2 D/M-MODE ECHOCARDIOGRAM Name: NADER BOYD [place] Room #: 205-P ADM IN M.R.#: [id number] Admission: 01/06/20 Attend Phys: Demar Guidry MD Discharge: Date of : 32 Report #: [id number] THIS REPORT FOR: cc: FAM - No family physician/PCP FAM - No family physician/PCP Kodi Benoit MD ~ APPROVED REPORT Study performed: 01/07/2020 09:06:46 EXAM: Comprehensive 2D, Doppler, and color-flow Echocardiogram Patient Location: Bedside Room #: [facility] Status: routine BSA: 1.57 HR: 78 bpm BP: 134/66 mmHg Rhythm: NSR Other Information Study Quality: Good Indications Chest Pain Left Ventricle The left ventricle is normal size. There is normal left ventricular wall thickness. The left ventricular systolic function is normal. The left ventricular ejection fraction is within the normal range. LVEF is 55-60%. This study is not technically sufficient to allow evaluation of the LV diastolic function. Right Ventricle The right ventricle is normal size. The right ventricular systolic function is normal. Atria Left atrium is dilated. Right atrium is at the upper limits of normal. Aortic Valve The aortic valve is normal in structure. Mitral Valve [address] [address] 2 D/M-MODE ECHOCARDIOGRAM Name: NADER BOYD Room #: 205-P ADM IN M.R.#: [id number] Admission: 01/06/20 Attend Phys: Demar Guidry MD Discharge: Date of : 32 Report #: [id number] The mitral valve is normal in structure. Tricuspid Valve The tricuspid valve is normal in structure. Pulmonic Valve The pulmonary valve is normal in structure. Great Vessels The aortic root is normal in size. IVC is normal in size and collapses >50% with inspiration. Pericardium There is no pericardial effusion. <Conclusion> The left ventricle is normal size. LVEF is 55-60%. Left atrium is dilated. Right atrium is at the upper limits of normal. The aortic valve is normal in structure. The mitral valve is normal in structure. The tricuspid valve is normal in structure. The pulmonary valve is normal in structure. There is no pericardial effusion. <ELECTRONICALLY SIGNED> By: Kodi Benoit MD 01/07/20 1104 1104 1104 Kodi Benoit MD /INF
--- NOTE | 2020-01-07 14:24 | NUR ---
Met with patient who admits with chest pain. 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 Reports she lives with son Nirmal. All needs on one level. She reports she does not use a walker at home. She has home oxygen via [facility] usu at 2 liters. She dializes at [facility]. She reports family assists with transport to/from dialysis. Sp with dialysis clinic to alert of admission. Patient reports PCP is Dr Anderson at [facility], but believe Dr Anderson is a surgeon. Called placed to octavio Moroe. patient impulsive in room. Cont to get out of bed setting off bed/chair alarm and takes off her oxygen. Tenative plan for home once stable. May benefit from care.
--- NOTE | 2020-01-07 18:31 | NUR ---
ALERT AND ORIENTED WITH FORGETFULNESS. HAD DIALYSIS THIS AM. SCHEDULED RT TREATMENT PROVIDED ORDERED. SON UPDATED ON PT'S PROGRESS. FALL PRECAUTION IN PLACE. WILL CONTINUE TO MONITOR.
--- NOTE | 2020-01-08 03:49 | NUR ---
ASSESSMENT DOCUMENTED.PT HAS BEEN PLEASANTLY CONFUSED THROUGH THE NOC REQUIRING MUTIPLE REORINTATION TO PLACE AND SITUATION.DISCONTINUED IVS AND REMOVES HEART MONITOR AND NC SEVERAL TIMES.NO AGITATION NOTED.VSS.SR/STACHY ON MONITOR.DIALYSIS FISTULA TO BRIAN W/BRUIL AND THRILL.ANTICIPATING DISCHARGE TODAY TO HOME.WILL CONT TO MONITOR PER POC.
[2020-01-08 04:49] VITALS: BP 156/68
[2020-01-08] MEDS ORDERED: PANTOPRAZOLE SO40 M1 PO (07:48)
[2020-01-08] MEDS ORDERED: B-12500 MCG PO (07:48)
[2020-01-08] MEDS ORDERED: ASPIR 8181 MG PO (07:48)
[2020-01-08] MEDS ORDERED: GUAIFENESIN DM S5 ML PO (07:48)
[2020-01-08 08:10] VITALS: BP 172/66
--- NOTE | 2020-01-08 10:58 | NUR ---
PT CARE ASSUMED AT 0700. A&Ox3. PT CONTINUES ETO TAKE OFF MONITOR AND NASAL CANULA. SATING AT 98% WITHOUT O2. RUNNING NS TACHY ON TELE. ACHS WITH LOW SLIDING SCALE. IV PATENT WITH NO REDNESS OR EDEMA, SALINE LOCKED. PT/OT ORDERED FOR HOME HEALTH EVALUATION. NO COMPLAINTS OF PAIN. FISTULA THRILL AND BRUIT IN PLACE. PT UP IN RECLINER ALL DAY. CONTINUES TO BE CONFUSED ABOUT WHY SHE IS IN THE HOSPITAL AND WOULD LIKE TO GO HOME TO BABYSIT HER GRANDKIDS. WILL CONTINUE TO MONITOR. CALL LIGHT IN PLACE. FALL PROTOCOL IN PLACE.
[2020-01-08 12:10] VITALS: BP 135/49
[2020-01-08] MEDS ORDERED: DOXYCYCLINE HYC50 MG PO (12:51)
[2020-01-08 16:14] VITALS: BP 155/52
[2020-01-08] MEDS ORDERED: BENZONATATE100 MG PO (17:21)
[2020-01-08] MEDS ORDERED: METOPROLOL TART25 MG PO (17:21)
[2020-01-08] MEDS ORDERED: IPRAT-ALBUT 0.5-3 ML INH (17:21)
[2020-01-08] MEDS ORDERED: PREDNISONE 20 M20 MG PO (17:21)
[2020-01-08 17:42] VITALS: BP 155/52
[2020-01-09 10:25] VITALS: BP 155/52
[2020-01-09 10:27] VITALS: BP 155/52
[2020-01-09 11:36] VITALS: BP 155/52
--- NOTE | 2020-01-09 13:12 | NUR ---
PT DISCHARGED LATE YESTERDAY FAXED REFERRAL TO [facility] HH SPOKE WITH BARBRA IN INTAKE THEY CAN ACCEPT PT.
[2020-01-09 13:57] VITALS: BP 155/52
--- NOTE | 2020-01-09 14:43 | NUR ---
PT DISCHARGED LATE YESTERDAY NEEDING HH FAXED REFERRAL TO [facility] SPOKE WITH BARBRA IN ADM SHE RECEIVED REFERRAL AND WILL ACCEPT. FAXED DC ORDERS/SUMMARY RECEIVED CONFIRMATION AND HH WILL CALL AND ARRANGED VISITS.
== END 2020-01-08 19:21 | disposition home health service (06) | DRG 190 ==
LOC: ER 22:20 → 2N 01-06 00:29
PROVIDERS: Emergency Medicine; Nurse Practitioner Family; ADMIT Internal Medicine; ATTEND Internal Medicine
PROC: 5A1D70Z Performance of Urinary Filtration, Intermittent, Less than 6 Hours Per Day (ICD-10-PCS; principal; 2020-01-07)
DX: J44.1 Chronic obstructive pulmonary disease with (acute) exacerbation (principal); N18.6 End stage renal disease; I12.0 Hypertensive chronic kidney disease with stage 5 chronic kidney disease or end stage renal disease; J96.11 Chronic respiratory failure with hypoxia; E87.1 Hypo-osmolality and hyponatremia; E78.5 Hyperlipidemia, unspecified; Z20.828 Contact with and (suspected) exposure to other viral communicable diseases; I25.10 Atherosclerotic heart disease of native coronary artery without angina pectoris; E11.22 Type 2 diabetes mellitus with diabetic chronic kidney disease; F03.90 Unspecified dementia, unspecified severity, without behavioral disturbance, psychotic disturbance, mood disturbance, and anxiety; E53.8 Deficiency of other specified B group vitamins; G47.00 Insomnia, unspecified; K59.00 Constipation, unspecified; Z95.1 Presence of aortocoronary bypass graft; Z99.81 Dependence on supplemental oxygen; Z79.899 Other long term (current) drug therapy; Z87.891 Personal history of nicotine dependence; Z86.73 Personal history of transient ischemic attack (TIA), and cerebral infarction without residual deficits; Z99.2 Dependence on renal dialysis; Z79.82 Long term (current) use of aspirin
CPT/HCPCS: 10081; 32100

== ENCOUNTER 2020-03-19 18:03 | Emergency (ER) | payer OTHER ==
[~2020-03-19] VITALS: Ht 160 cm; Wt 54.4 kg
[~2020-03-19 18:03] MED LIST changes: +ASPIR 8181 MG PO; +B-12500 MCG PO; +BENZONATATE100 MG PO; +DOXYCYCLINE HYC50 MG PO; +GUAIFENESIN DM S5 ML PO; +IPRAT-ALBUT 0.5-3 ML INH; +METOPROLOL TART25 MG PO; +PANTOPRAZOLE SO40 M1 PO; +PREDNISONE 20 M20 MG PO
[2020-03-19 19:59] LABS: HEMOGLOBIN 13.8 gm/dL (12.0-15.0); MCH 27.4 pg (26.0-34.0); MCHC 32.9 g/dL (28.0-37.0); MCV 83.2 fL (80.0-100.0); PLATELET COUNT 194 thou/uL (150-400); RBC 5.05 mil/uL (4.20-5.00); RDW 18.6 % (10.5-14.5); WBC 5.2 thou/uL (4.0-11.0)
[2020-03-19 20:34] LABS: ABSOLUTE NEUTROPHILS 2.3 thou/uL (1.4-8.2); ANISOCYTOSIS 2+; POIKILOCYTOSIS 1+
[2020-03-19 20:35] LABS: MACROCYTES FEW; MICROCYTES FEW; TEARDROPS 1+
[2020-03-19 20:40] LABS: ANION GAP 9 mmol/L (7-16); BUN 26 mg/dL (7-18); CHLORIDE 99 mmol/L (98-107); CO2 32 mmol/L (21-32); CREATININE 4.9 mg/dL (0.6-1.0); GLUCOSE 119 mg/dL (74-106); POTASSIUM 3.6 mmol/L (3.5-5.1); SODIUM 140 mmol/L (136-145)
[2020-03-19 20:49] LABS: ALBUMIN 3.3 g/dL (3.4-5.0); DIRECT BILIRUBIN 0.1 mg/dL (<0.1-0.2); SGOT 17 U/L (15-37); SGPT 9 U/L (30-65); TOTAL BILIRUBIN 0.3 mg/dL (0.2-1.0); TOTAL PROTEIN 7.7 g/dL (6.4-8.2); TROPONIN-I <0.06 ng/mL (<0.06)
[2020-03-19 22:17] VITALS: BP 171/78
--- NOTE | 2020-03-20 08:36 | EKG ---
[facility] [place] [address] ELECTROCARDIOGRAM REPORT Name: NADER BOYD Room #: DEP [facility]#: [id number] Admission: 03/19/20 Attend Phys: Discharge: 03/19/20 Date of : 32 Report #: [id number] THIS REPORT FOR: cc: SABRINA - Liliya family physician/PCP SABRINA - Liliya family physician/PCP Shant Gonzalez MD [facility] THIS REPORT FOR: //name// [facility] ED Test Date: 2020-03-19 Test Time: 19:52:32 Pat Name: NADER BOYD Department: Room: Gender: F Mulling Machine Operator: eliu foote rn : 1930 Requested By: Michelle Kearney Order Number: [id number] MD: Shant Gonzalez Measurements Intervals [place] Rate: 80 P: 58 AL: 156 QRS: 62 QRSD: 82 T: 76 QT: 389 QTc: 449 Interpretive Statements Sinus rhythm Atrial premature complexes Anterior infarct, old Baseline wander in lead(s) V6 Compared to ECG 01/06/2020 07:26:44 No significant changes Electronically Signed On 03-20-2020 8:36:29 CDT by Shant Gonzalez [email or web address] <ELECTRONICALLY SIGNED> By: Shant Gonzalez MD, FAC 03/20/20 0836 51 51 Shant Gonzalez MD, [facility] /EPI
== END 2020-03-19 22:20 | disposition home or self-care (01) ==
LOC: ER 18:03
PROVIDERS: Emergency Medicine
DX: R53.1 Weakness (principal); R06.00 Dyspnea, unspecified; J44.9 Chronic obstructive pulmonary disease, unspecified; I12.0 Hypertensive chronic kidney disease with stage 5 chronic kidney disease or end stage renal disease; E11.22 Type 2 diabetes mellitus with diabetic chronic kidney disease; N18.6 End stage renal disease; E78.5 Hyperlipidemia, unspecified; I25.10 Atherosclerotic heart disease of native coronary artery without angina pectoris; Z95.1 Presence of aortocoronary bypass graft; Z79.82 Long term (current) use of aspirin; Z79.899 Other long term (current) drug therapy; Z20.828 Contact with and (suspected) exposure to other viral communicable diseases

== ENCOUNTER 2020-04-02 18:33 | Emergency (ER) | payer OTHER ==
[~2020-04-02] VITALS: Ht 162.6 cm; Wt 54.9 kg
[2020-04-02 19:20] LABS: HEMATOCRIT 39.2 % (37.0-47.0); HEMOGLOBIN 13.2 gm/dL (12.0-15.0); MCH 27.6 pg (26.0-34.0); MCHC 33.7 g/dL (28.0-37.0); MCV 81.8 fL (80.0-100.0); PLATELET COUNT 202 thou/uL (150-400); RBC 4.79 mil/uL (4.20-5.00); RDW 17.4 % (10.5-14.5); WBC 5.3 thou/uL (4.0-11.0)
[2020-04-02 19:24] LABS: ANION GAP 8 mmol/L (7-16); BUN 16 mg/dL (7-18); CALCIUM 9.5 mg/dL (8.5-10.1); CHLORIDE 95 mmol/L (98-107); CO2 32 mmol/L (21-32); GLUCOSE 128 mg/dL (74-106); POTASSIUM 3.9 mmol/L (3.5-5.1); SODIUM 135 mmol/L (136-145)
[2020-04-02 19:33] LABS: TROPONIN-I <0.06 ng/mL (<0.06)
[2020-04-02 19:55] LABS: ABSOLUTE NEUTROPHILS 2.2 thou/uL (1.4-8.2)
[2020-04-02 19:56] LABS: ANISOCYTOSIS 1+; LARGE PLATELETS OCCASIONAL; NUCLEATED RBCS 1 /100WBC
[2020-04-02] MEDS ORDERED: MOBIC7.5 MG PO (20:30)
[2020-04-02] MEDS ORDERED: PROAIR HFA8.5 GM INH (20:30)
[2020-04-02 20:47] VITALS: BP 117/56
--- NOTE | 2020-04-03 12:17 | EKG ---
[facility] [place] [address] [place] [address] ELECTROCARDIOGRAM REPORT Name: NADER BOYD [id number] Admission: 04/02/20 Attend Phys: Discharge: 04/02/20 Date of : 32 Report #: [id number] THIS REPORT FOR: cc: SABRINA - Liliya family physician/PCP SABRINA - Liliya family physician/PCP Boyd Peoples MD [facility] THIS REPORT FOR: //name// [facility] ED Test Date: 2020-04-02 Test Time: 18:58:51 Pat Name: NADER BOYD Department: Room: Gender: F Account Relationship Manager: MARLINE PRISCAMADISON : 1930 Requested By: Clayton Juarez Order Number: [id number] MD: Boyd Peoples Measurements Intervals [place] Rate: 88 P: 48 SC: 152 QRS: 53 QRSD: 91 T: 63 QT: 359 QTc: 435 Interpretive Statements Sinus rhythm Ventricular premature complex Probable anteroseptal infarct, old Compared to ECG 03/19/2020 19:52:32 Ventricular premature complex(es) now present Atrial premature complex(es) no longer present Myocardial infarct finding still present Electronically Signed On 04-03-2020 12:17:19 PRESSURE TESTING TECHNICIAN by Boyd Peoples [email or web address] <ELECTRONICALLY SIGNED> By: Boyd Peoples MD, FACC 04/03/20 1217 57 57 Boyd Peoples MD, FACC /EPI
== END 2020-04-02 20:49 | disposition home or self-care (01) ==
LOC: ER 18:33
PROVIDERS: Nurse Practitioner
DX: M94.0 Chondrocostal junction syndrome [Tietze] (principal); R42 Dizziness and giddiness; R11.2 Nausea with vomiting, unspecified; R10.9 Unspecified abdominal pain; R06.02 Shortness of breath; J44.9 Chronic obstructive pulmonary disease, unspecified; E11.22 Type 2 diabetes mellitus with diabetic chronic kidney disease; I12.0 Hypertensive chronic kidney disease with stage 5 chronic kidney disease or end stage renal disease; N18.6 End stage renal disease; E78.5 Hyperlipidemia, unspecified; Z99.2 Dependence on renal dialysis; Z86.73 Personal history of transient ischemic attack (TIA), and cerebral infarction without residual deficits; Z98.61 Coronary angioplasty status; Z79.82 Long term (current) use of aspirin; Z79.899 Other long term (current) drug therapy

== ENCOUNTER 2020-05-12 20:57 | Emergency (ER) | payer OTHER ==
[~2020-05-12] VITALS: Ht 160 cm; Wt 59.0 kg
[~2020-05-12 20:57] MED LIST changes: +MOBIC7.5 MG PO; +PROAIR HFA8.5 GM INH
[2020-05-12 22:07] LABS: ABSOLUTE NEUTROPHILS 3.7 thou/uL (1.4-8.2); BASOPHILS 0.8 % (0.0-2.0); EOSINOPHILS 8.7 % (0.0-3.0); HEMATOCRIT 35.8 % (37.0-47.0); LYMPHOCYTES 20.1 % (24.0-44.0); MCH 28.6 pg (26.0-34.0); MCHC 33.4 g/dL (28.0-37.0); MCV 85.6 fL (80.0-100.0); MONOCYTES 17.4 % (1.0-8.0); PLATELET COUNT 267 thou/uL (150-400); RBC 4.18 mil/uL (4.20-5.00); RDW 17.6 % (10.5-14.5)
[2020-05-12 22:11] LABS: ANION GAP 12 mmol/L (7-16); BUN 21 mg/dL (7-18); CALCIUM 9.9 mg/dL (8.5-10.1); CHLORIDE 96 mmol/L (98-107); CO2 28 mmol/L (21-32); CREATININE 4.8 mg/dL (0.6-1.0); GLUCOSE 146 mg/dL (74-106); POTASSIUM 4.1 mmol/L (3.5-5.1); SODIUM 136 mmol/L (136-145)
[2020-05-12 22:21] LABS: ALBUMIN 3.9 g/dL (3.4-5.0); SGOT 21 U/L (15-37); SGPT 14 U/L (30-65); TOTAL BILIRUBIN 0.3 mg/dL (0.2-1.0); TOTAL PROTEIN 8.2 g/dL (6.4-8.2); TROPONIN-I <0.06 ng/mL (<0.06)
[2020-05-12 23:42] VITALS: BP 123/56
--- NOTE | 2020-05-13 07:17 | EKG ---
[place] [address] [facility] [address] [place] [address] ELECTROCARDIOGRAM REPORT Name: NADER OBYD Room #: DEP Sae#: [id number] Admission: 05/12/20 Attend Phys: Discharge: 05/12/20 Date of : 32 Report #: [id number] [facility] ED Test Date: 2020-05-12 Test Time: 21:20:52 Pat Name: NADER BOYD Department: Room: Gender: F Dam Tender Assistant: sharifa : 1930 Requested By: Ana Jones Order Number: [id number] MD: Boyd Peoples Measurements Intervals [place] Rate: 90 P: 82 ND: 157 QRS: 38 QRSD: 76 T: 71 QT: 362 QTc: 443 Interpretive Statements Sinus rhythm Atrial premature complexes Probable anteroseptal infarct, old Compared to ECG 04/02/2020 18:58:51 Atrial premature complex(es) now present Ventricular premature complex(es) no longer present Myocardial infarct finding still present Electronically Signed On 05-13-2020 7:17:35 STORAGE SOLUTIONS ARCHITECT by Boyd Peoples [email or web address] <ELECTRONICALLY SIGNED> By: Boyd Peoples MD, [facility] 05/13/20716 19 19 Boyd Peoples MD, [facility] /EPI
== END 2020-05-12 23:43 | disposition home or self-care (01) ==
LOC: ER 20:57
PROVIDERS: Physician Assistant
DX: R55 Syncope and collapse (principal); R06.02 Shortness of breath; R07.89 Other chest pain; R50.9 Fever, unspecified; R05 Cough; E11.22 Type 2 diabetes mellitus with diabetic chronic kidney disease; I12.0 Hypertensive chronic kidney disease with stage 5 chronic kidney disease or end stage renal disease; N18.6 End stage renal disease; E78.5 Hyperlipidemia, unspecified; I25.10 Atherosclerotic heart disease of native coronary artery without angina pectoris; J44.9 Chronic obstructive pulmonary disease, unspecified; Z99.2 Dependence on renal dialysis; Z98.61 Coronary angioplasty status; Z79.899 Other long term (current) drug therapy; Z79.82 Long term (current) use of aspirin; Z87.891 Personal history of nicotine dependence

== ENCOUNTER 2020-06-25 18:35 | Emergency (ER) | payer OTHER ==
[~2020-06-25] VITALS: Ht 162.6 cm; Wt 57.6 kg
[2020-06-25 19:36] LABS: HEMOGLOBIN 11.5 gm/dL (12.0-15.0)
[2020-06-25 19:38] LABS: HEMATOCRIT 34.7 % (37.0-47.0); MCH 29.1 pg (26.0-34.0); MCHC 33.1 g/dL (28.0-37.0); MCV 87.9 fL (80.0-100.0); PLATELET COUNT 244 thou/uL (150-400); RBC 3.95 mil/uL (4.20-5.00); WBC 6.6 thou/uL (4.0-11.0)
[2020-06-25 19:45] LABS: ANION GAP 8 mmol/L (7-16); BUN 13 mg/dL (7-18); CALCIUM 8.7 mg/dL (8.5-10.1); CHLORIDE 98 mmol/L (98-107); CO2 34 mmol/L (21-32); CREATININE 3.8 mg/dL (0.6-1.0); GLUCOSE 125 mg/dL (74-106); POTASSIUM 3.4 mmol/L (3.5-5.1); SODIUM 140 mmol/L (136-145)
[2020-06-25 19:53] LABS: TROPONIN-I <0.06 ng/mL (<0.06)
[2020-06-25 20:20] LABS: POLYCHROMASIA OCCASIONAL
[2020-06-25 20:21] LABS: ANISOCYTOSIS 1+
[2020-06-25] MEDS ORDERED: DOXYCYCLINE 10100 MG PO (20:47)
[2020-06-25 20:51] VITALS: BP 138/57
[2020-06-25 22:00] LABS: ABSOLUTE NEUTROPHILS 3.4 thou/uL (1.4-8.2); METAMYELOCYTES 1 %
[2020-06-25 22:01] LABS: PLATELET ESTIMATE NORMAL; POIKILOCYTOSIS 1+
--- NOTE | 2020-06-26 07:24 | EKG ---
[place] [address] [place] [address] ELECTROCARDIOGRAM REPORT Name: NADER BOYD Room #: [facility] LINDA Quevedo#: [id number] Admission: 06/25/20 Attend Phys: Discharge: 06/25/20 Date of : 32 Report #: [id number] [facility] ED Test Date: 2020-06-25 Test Time: 18:57:00 Pat Name: NADER BOYD Department: Room: Gender: F Beef Farmer: li : 1930 Requested By: Clayton Juarez Order Number: [id number] MD: Shant Gonzalez Measurements Intervals [place] Rate: 82 P: 232 [place]: 155 QRS: 55 QRSD: 80 T: 64 QT: 382 QTc: 446 Interpretive Statements Sinus or ectopic atrial rhythm Atrial premature complexes Probable anteroseptal infarct, old Compared to ECG 05/12/2020 21:20:52 No significant changes found Electronically Signed On 06-26-2020 7:24:41 RETURN AGENT AIRPORT by Shant Gonzalez [email or web address] <ELECTRONICALLY SIGNED> By: Shant Gonzalez MD, [facility] 06/26/20 0724 1857 56 Shant Gonzalez MD, FACC /EPI
== END 2020-06-25 21:05 | disposition home or self-care (01) ==
LOC: ER 18:35
PROVIDERS: Nurse Practitioner
DX: R06.00 Dyspnea, unspecified (principal); J44.9 Chronic obstructive pulmonary disease, unspecified; E78.5 Hyperlipidemia, unspecified; I25.10 Atherosclerotic heart disease of native coronary artery without angina pectoris; E11.22 Type 2 diabetes mellitus with diabetic chronic kidney disease; I12.0 Hypertensive chronic kidney disease with stage 5 chronic kidney disease or end stage renal disease; N18.6 End stage renal disease; Z95.1 Presence of aortocoronary bypass graft; Z87.891 Personal history of nicotine dependence; Z79.899 Other long term (current) drug therapy; Z20.828 Contact with and (suspected) exposure to other viral communicable diseases

== ENCOUNTER 2020-07-20 15:57 | Emergency (ER) | payer OTHER ==
[~2020-07-20] VITALS: Ht 162.6 cm; Wt 56.7 kg
[~2020-07-20 15:57] MED LIST changes: +DOXYCYCLINE 10100 MG PO
[2020-07-20 16:47] LABS: HEMATOCRIT 39.5 % (37.0-47.0); HEMOGLOBIN 12.8 gm/dL (12.0-15.0); MCH 28.9 pg (26.0-34.0); MCHC 32.4 g/dL (28.0-37.0); MCV 89.2 fL (80.0-100.0); RBC 4.43 mil/uL (4.20-5.00); RDW 14.4 % (10.5-14.5); WBC 6.8 thou/uL (4.0-11.0)
[2020-07-20 16:53] LABS: CALCIUM 7.8 mg/dL (8.5-10.1); CREATININE 11.7 mg/dL (0.6-1.0); POTASSIUM 4.5 mmol/L (3.5-5.1)
[2020-07-20 16:59] LABS: TOTAL BILIRUBIN 0.4 mg/dL (0.2-1.0); TOTAL PROTEIN 8.6 g/dL (6.4-8.2)
[2020-07-20 19:42] VITALS: BP 168/67
--- NOTE | 2020-07-21 07:16 | EKG ---
[place] [address] [facility] [place] [address] ELECTROCARDIOGRAM REPORT Name: NADER BOYD [facility] [id number] Admission: 07/20/20 Attend Phys: Discharge: 07/20/20 Date of : 32 Report #: [id number] [facility] ED Test Date: 2020-07-20 Test Time: 16:03:56 Pat Name: NADER BOYD Department: Room: Gender: F Refined Syrup Operator: ISHA : 1930 Requested By: Allison Torrez Order Number: [id number] MD: Boyd Peoples Measurements Intervals [place] Rate: 77 P: 0 DC: 154 QRS: 41 QRSD: 90 T: 83 QT: 392 QTc: 444 Interpretive Statements Sinus rhythm Multiform ventricular premature complexes Anteroseptal infarct, age indeterminate Compared to ECG 06/25/2020 18:57:00 Ventricular premature complex(es) now present Ectopic atrial rhythm no longer present Atrial premature complex(es) no longer present Myocardial infarct finding still present Electronically Signed On 07-21-2020 7:16:27 CAR PARK ATTENDANT by Boyd Peoples [email or web address] <ELECTRONICALLY SIGNED> By: Boyd Peoples MD, FACC 07/21/20 0716 1603 1603 Boyd Peoples MD, [facility] /EPI
== END 2020-07-20 19:56 | disposition home or self-care (01) ==
LOC: ER 15:57
PROVIDERS: Nurse Practitioner Family
DX: R07.9 Chest pain, unspecified (principal); R06.00 Dyspnea, unspecified; J44.9 Chronic obstructive pulmonary disease, unspecified; I25.10 Atherosclerotic heart disease of native coronary artery without angina pectoris; E78.5 Hyperlipidemia, unspecified; E11.22 Type 2 diabetes mellitus with diabetic chronic kidney disease; I12.0 Hypertensive chronic kidney disease with stage 5 chronic kidney disease or end stage renal disease; N18.6 End stage renal disease; Z79.82 Long term (current) use of aspirin; Z95.1 Presence of aortocoronary bypass graft; Z79.899 Other long term (current) drug therapy; Z87.891 Personal history of nicotine dependence

== ENCOUNTER 2020-09-06 19:49 | Emergency (ER) | payer OTHER ==
[~2020-09-06] VITALS: Ht 162.6 cm; Wt 59.0 kg
[2020-09-06 20:34] LABS: ABSOLUTE NEUTROPHILS 3.1 thou/uL (1.4-8.2); BASOPHILS 0.4 % (0.0-2.0); EOSINOPHILS 16.1 % (0.0-3.0); HEMATOCRIT 36.8 % (37.0-47.0); HEMOGLOBIN 12.1 gm/dL (12.0-15.0); LYMPHOCYTES 24.6 % (24.0-44.0); MCH 28.8 pg (26.0-34.0); MCV 87.4 fL (80.0-100.0); MONOCYTES 16.6 % (1.0-8.0); PLATELET COUNT 236 thou/uL (150-400); POLYS 42.3 % (36.0-66.0); RBC 4.21 mil/uL (4.20-5.00); RDW 15.4 % (10.5-14.5); WBC 7.4 thou/uL (4.0-11.0)
[2020-09-06 20:38] LABS: ANION GAP 10 mmol/L (7-16); BUN 24 mg/dL (7-18); CALCIUM 8.3 mg/dL (8.5-10.1); CHLORIDE 97 mmol/L (98-107); CO2 30 mmol/L (21-32); CREATININE 6.1 mg/dL (0.6-1.0); GLUCOSE 94 mg/dL (74-106); POTASSIUM 4.6 mmol/L (3.5-5.1); SODIUM 137 mmol/L (136-145)
[2020-09-06 20:48] LABS: ALBUMIN 3.4 g/dL (3.4-5.0); DIRECT BILIRUBIN 0.1 mg/dL (<0.1-0.2); SGOT 20 U/L (15-37); SGPT 12 U/L (14-59); TOTAL BILIRUBIN 0.4 mg/dL (0.2-1.0); TOTAL PROTEIN 8.3 g/dL (6.4-8.2); TROPONIN-I <0.06 ng/mL (<0.06)
[2020-09-07] MEDS ORDERED: MELOXICAM7.5 MG PO (00:32)
[2020-09-07 00:49] VITALS: BP 141/62
--- NOTE | 2020-09-08 09:29 | EKG ---
[place] [address] [facility] [place] [address] ELECTROCARDIOGRAM REPORT Name: NADER BOYD [id number] Admission: 09/06/20 Attend Phys: Discharge: 09/07/20 Date of : 32 Report #: [id number] [facility] ED Test Date: 2020-09-06 Test Time: 20:06:33 Pat Name: NADER BOYD Department: Room: Gender: F Mold Technician: [email or web address] : 1930 Requested By: Michelle Kearney Order Number: [id number] MD: Shant Gonzalez Measurements Intervals [place] Rate: 76 P: 74 CA: 154 QRS: 52 QRSD: 85 T: 77 QT: 383 QTc: 431 Interpretive Statements Sinus rhythm Anterior infarct, old Baseline wander in lead(s) II,III,aVR,aVL,aVF,V1,V3 Compared to ECG 07/20/2020 16:03:56 Ventricular premature complex(es) no longer present Electronically Signed On 09-08-2020 9:29:07 CDT by Shant Gonzalez [email or web address] <ELECTRONICALLY SIGNED> By: Shant Gonzalez MD, [facility] 09/08/20 0929 05 05 Shant Gonzalez MD, [facility] /EPI
== END 2020-09-07 00:51 | disposition home or self-care (01) ==
LOC: ER 19:49
PROVIDERS: Emergency Medicine
DX: M25.562 Pain in left knee (principal); R07.89 Other chest pain; I10 Essential (primary) hypertension; J44.9 Chronic obstructive pulmonary disease, unspecified; E11.9 Type 2 diabetes mellitus without complications; Z86.73 Personal history of transient ischemic attack (TIA), and cerebral infarction without residual deficits; Z95.1 Presence of aortocoronary bypass graft; Z87.891 Personal history of nicotine dependence; Z79.899 Other long term (current) drug therapy; Z79.82 Long term (current) use of aspirin

== ENCOUNTER 2020-09-10 05:36 | Inpatient (IN) | payer OTHER ==
[~2020-09-10] VITALS: Ht 162.6 cm; Wt 55.3 kg
[~2020-09-10 05:36] MED LIST changes: +MELOXICAM7.5 MG PO
[2020-09-10 05:47] VITALS: BP 178/82
[2020-09-10 07:26] LABS: ABSOLUTE NEUTROPHILS 3.9 thou/uL (1.4-8.2); EOSINOPHILS 9.5 % (0.0-3.0); HEMATOCRIT 33.7 % (37.0-47.0); LYMPHOCYTES 18.9 % (24.0-44.0); MCH 28.4 pg (26.0-34.0); MCHC 32.7 g/dL (28.0-37.0); MCV 86.8 fL (80.0-100.0); MONOCYTES 17.1 % (1.0-8.0); PLATELET COUNT 228 thou/uL (150-400); POLYS 53.5 % (36.0-66.0); RBC 3.88 mil/uL (4.20-5.00); RDW 15.3 % (10.5-14.5); WBC 7.2 thou/uL (4.0-11.0)
[2020-09-10 07:53] LABS: ANION GAP 13 mmol/L (7-16); BUN 64 mg/dL (7-18); CALCIUM 7.8 mg/dL (8.5-10.1); CHLORIDE 101 mmol/L (98-107); CO2 26 mmol/L (21-32); CREATININE 14.3 mg/dL (0.6-1.0); GLUCOSE 97 mg/dL (74-106); POTASSIUM 5.7 mmol/L (3.5-5.1); SODIUM 140 mmol/L (136-145)
[2020-09-10 08:03] LABS: ALBUMIN 3.1 g/dL (3.4-5.0); SGOT 17 U/L (15-37); SGPT 11 U/L (14-59); TOTAL BILIRUBIN 0.4 mg/dL (0.2-1.0); TOTAL PROTEIN 7.6 g/dL (6.4-8.2); TROPONIN-I <0.06 ng/mL (<0.06)
--- NOTE | 2020-09-10 09:58 | NUR ---
talked with dr rodriguez, ok to hold off on further straight cath for this pt. tried 2x, unsucessful, pt also dialysis m,w,fr.
[2020-09-10 13:21] VITALS: BP 138/58
--- NOTE | 2020-09-10 13:36 | NUR ---
ATTEMPTED TO CALL REPORT FOR THIS PATIENT AT 13:34. WAS INFORMED THAT LANDSCAPE SPECIALIST MOVED A PT FROM RM 456 TO RM 452 THAT WAS ASSIGNED TO ED PT. NO CLEAN ROOM AVAILABLE FOR ED PT. INFORMED WOOL GRADER.
[2020-09-10 14:14] VITALS: BP 163/63
[2020-09-10 14:34] VITALS: BP 173/72
--- NOTE | 2020-09-10 19:48 | NUR ---
[age] YEAR OLD FEMALE ADMITTED TO [facility]. PT WAS BROUGHT INTO THE ER FOR LEFT HIP PAIN. PT IS ALERT TO SELF AND SITUATION ONLY. PT TOLERATES MEDS. PT IMPULSIVE BUT EASILY REDIRECTABLE. WILL CONTINUE TO MONITOR.
[2020-09-10 20:20] VITALS: BP 169/56
--- NOTE | 2020-09-11 02:16 | NUR ---
PT CARE ASSUMED WITH PT IN ROOM 456.PT TRIED GETTING OUT OF BED AND WANTING TO GO HOME.PT REDIRECTED AND PT MOVED TO ROOM 451 CLOSE TO THE NURSING STATION.PT IS A/O X2.PT HAS A DIALYSIS ACCESS AV FISTULA ON THE LT UA.PT C/O LT HIP PAIN AND NORCO GIVEN FOR PAIN MANAGEMENT.PT IS ON ROOM AIR.WILL CONTINUE TO MONITOR POC
[2020-09-11 08:40] VITALS: BP 139/65
--- NOTE | 2020-09-11 11:56 | NUR ---
ASSUMED PT CARE THIS AM. PT VSS, A&OX1. PATIENT ABLE TO AMBULATE AROUND ROOM WITH MINIMUN ASSIST. PATIENT FORGETS LIMITATIONS, AND FALL PRECAUTIONS ARE IN PLACE. PATIENT REPORTED NO PAIN, NUMBNESS OR TINGLING. PATIENT RECEIVED DIALYSIS THIS AM, DIALYSIS NURSE REPORTS REMOVING 2.5 LITERS OF FLUIDS. FISTULA TO LEFT UPPER ARM. PATIENT REMAINS INCONTINENT. IV IS SALINE LOCKED. ON ROOM AIR. TOOK MEDS WITHOUT ISSUE, HELD BLOOD PRESSURE MEDS THIS AM DUE TO PATIENT RECEIVING DIALYSIS.
--- NOTE | 2020-09-11 15:09 | NUR ---
ORDERS RECEIVED FOR PT EVAL AND TREAT. Pt LIVES IN [place] W/ SON W/ ELEVATOR ACCESS. DOES NOT USE AD. TAKES CAB TO HEMODIALYSIS. AO*2, SELF AND SITUATION. IMPULSIVE PER RN. Pt IN BED AND WANTING TO TAKE A NAP BUT WILLING TO WORK W/ PT. SUPERVISION FOR BED MOBILITY AND SIT>STAND. AMB IN ROOM W/ SBA, NO ASSISTIVE DEVICE W/ NBOS AND STEADY RECIP GAIT DESPITE L HIP/LATERAL THIGH PAIN. REPORTED PAIN SHARP AND RADIATING. Pt DOES NOT HAVE ACUTE PT NEEDS AT THIS TIME. WOULD RECOMMEND SBA FOR SAFETY W/ GAIT WHILE IN HOUSE, ESPECIALLY D/T IMPULSIVITY. ACUTE PT TO SIGN OFF.
--- NOTE | 2020-09-11 15:38 | NUR ---
PT ADMITTED RELATED TO SOA, CHEST PAIN, L LEG AND HIP PAIN. CM REVIEWED CHART AND SPOKE WITH CARE TEAM. CM CALLED AND SPOKE WITH PT'S SON JAMES THIS DAY. HE INDICATED THAT PT RESIDES IN A 3RD FLOOR APARTMENT WITH HIS BROTHER GWENDOLYN WITH ELEVATOR ACCESS INCOME TAX INVESTIGATOR. JAMES INDICATED THAT PT HAS A CANE FOR HOME USE BUT DOESN'T USE IT. THEY INDICATED THAT PT HAS PCP NAME IN PREVIOUS NOTE IT WILL BE ADDED. PT HAS HOME O2 THROUGH [facility] AT 2L INCOME TAX INVESTIGATOR. PT GOES TO DIALYSIS MWF AT [facility]. PT HAD BEEN ABLE TO DO OWN ADLS INCOME TAX INVESTIGATOR. BRITTANY INDICATED PT WITH IMPAITED COGNITION AND THAT PT IS ON A MEDICAID PEND DOWN OF ABOUT $250.00 A MONTH. PLANS TO PT TO RETURN TO APARTMENT [facility] AND HOME GWENDOLYN LIKELY TOMORROW. CM TO FOLLOW INDICATED WITH DC PLANNING.
[2020-09-11 17:11] VITALS: BP 139/72
[2020-09-11 19:58] VITALS: BP 142/54
[2020-09-12 07:31] VITALS: BP 131/71
--- NOTE | 2020-09-12 09:27 | NUR ---
PT ALERT AND ORIENTED TIMES THREE WITH PERIODS OF CONFUSION. VSS. PT DENIES PAIN/SOA. PT TOLERATES MEDS AND MEALS. PLANS FOR DISCHARGE AFTER DIALYSIS.
[2020-09-12 11:56] VITALS: BP 131/71
--- NOTE | 2020-09-12 14:07 | NUR ---
CARE TEAM INDICATED PT IS MEDICALLY STABLE TO DISCHARGE HOME THIS DAY. CARE TEAM RECOMMENDING HH SERVICES. SON AND PT INDICATED NO PREFERANCE FOR PROVIDER. REFERRAL SENT TO [facility]. PT IS ACCEPTED FOR SERVICE FROM [facility]. PT HAS ALL RECOMMENDED DME. NO OTHER CM INTERVENTION INDICATED. PT'S SON JAMES TO PROVIDE TRANSPORT HOME AT 1500. FLOW SHEETS SENT TO DIALYSIS CLINIC. CASE CLOSED.
== END 2020-09-12 15:41 | disposition home health service (06) | DRG 555 ==
LOC: ER 05:36 → 4W 14:15 → ER 14:15 → 4W 15:50
PROVIDERS: Emergency Medicine; ADMIT Hospitalist; ATTEND Hospitalist
PROC: 5A1D70Z Performance of Urinary Filtration, Intermittent, Less than 6 Hours Per Day (ICD-10-PCS; principal; 2020-09-11)
PROC: 5A1D70Z Performance of Urinary Filtration, Intermittent, Less than 6 Hours Per Day (ICD-10-PCS; 2020-09-12)
DX: M25.552 Pain in left hip (principal); N18.6 End stage renal disease; I13.2 Hypertensive heart and chronic kidney disease with heart failure and with stage 5 chronic kidney disease, or end stage renal disease; M67.452 Ganglion, left hip; J43.9 Emphysema, unspecified; I50.9 Heart failure, unspecified; F03.90 Unspecified dementia, unspecified severity, without behavioral disturbance, psychotic disturbance, mood disturbance, and anxiety; E53.8 Deficiency of other specified B group vitamins; M19.90 Unspecified osteoarthritis, unspecified site; E78.5 Hyperlipidemia, unspecified; E11.22 Type 2 diabetes mellitus with diabetic chronic kidney disease; I25.10 Atherosclerotic heart disease of native coronary artery without angina pectoris; Z95.1 Presence of aortocoronary bypass graft; Z86.73 Personal history of transient ischemic attack (TIA), and cerebral infarction without residual deficits; Z87.891 Personal history of nicotine dependence; Z79.82 Long term (current) use of aspirin; Z79.899 Other long term (current) drug therapy
CPT/HCPCS: 10047; 32100

== ENCOUNTER 2021-01-22 10:54 | Inpatient (IN) | payer OTHER ==
[~2021-01-22] VITALS: Ht 165.1 cm; Wt 59.0 kg
[2021-01-22 10:58] VITALS: BP 208/149
[2021-01-22 12:41] LABS: ABSOLUTE NEUTROPHILS 3.2 thou/uL (1.4-8.2); BASOPHILS 0.9 % (0.0-2.0); EOSINOPHILS 9.9 % (0.0-3.0); HEMATOCRIT 35.3 % (37.0-47.0); HEMOGLOBIN 11.4 gm/dL (12.0-15.0); LYMPHOCYTES 15.8 % (24.0-44.0); MCH 27.2 pg (26.0-34.0); MCHC 32.2 g/dL (28.0-37.0); MCV 84.4 fL (80.0-100.0); MONOCYTES 14.7 % (1.0-8.0); PLATELET COUNT 336 thou/uL (150-400); POLYS 58.7 % (36.0-66.0); RBC 4.18 mil/uL (4.20-5.00); RDW 16.3 % (10.5-14.5); WBC 5.5 thou/uL (4.0-11.0)
[2021-01-22 12:57] LABS: CALCIUM 7.2 mg/dL (8.5-10.1); CREATININE 20.1 mg/dL (0.6-1.0); POTASSIUM 5.2 mmol/L (3.5-5.1)
--- NOTE | 2021-01-22 13:30 | NUR ---
PT DENIES MISSING DIAYLSIS. PT STATES SHE GOES M/W/F. PT SON STATES THIS IS CORRECT. PT DUE FOR DIAYLSIS TOMORROW. PT IS ALERT AND ORIENTED X4, GCS 15, NO APPARENT DISTRESS NOTED. VSS ON 3L NC WHICH PT WEARS AT ALL TIMES
--- NOTE | 2021-01-22 14:44 | EKG ---
[place] [address] [facility] [place] [address] ELECTROCARDIOGRAM REPORT Name: NADER BOYD Room #: REG LINDA Quevedo#: [id number] Admission: 01/22/21 Attend Phys: Discharge: Date of : 34 Report #: [id number] [facility] ED Test Date: 2021-01-22 Test Time: 11:21:41 Pat Name: NADER BOYD Department: Room: Gender: F Supervisor Cigar Making Machine: : 1930 Requested By: Jocelyne Farooq Order Number: [id number] MD: Boyd Peoples Measurements Intervals [place] Rate: 74 P: 79 [place]: 167 QRS: 61 QRSD: 93 T: 76 QT: 407 QTc: 452 Interpretive Statements Sinus rhythm Probable anteroseptal infarct, recent Compared to ECG 09/06/2020 20:06:33 No significant changes Electronically Signed On 01-22-2021 14:44:48 CDT by Boyd Peoples [email or web address] <ELECTRONICALLY SIGNED> By: Boyd Peoples MD, [facility] 01/22/21 1444 1121 1121 Boyd Peoples MD, FACC /EPI
--- NOTE | 2021-01-22 17:50 | NUR ---
REPORT GIVEN TO CHRISTA BARCLAY AT THIS TIME
--- NOTE | 2021-01-23 04:14 | NUR ---
01/22/21 2300 ASSUMED CARE OF PATIENT FROM ER NURSE. PATIENT RESTING IN HER HER BED. PATIENT IS AAOX2. SHE IS COOPERATIVE AND PLEASANT. NOTED PT ON 3L NC AT 95%. NOTED BLOOD TO SIDE OF PATIENTS BED FROM UNKNOWN SOURCE. PT STATES THAT SHE HAD A NOSE BLEED. NO EVIDENCE OF DRIED AROUND PATIENT NOSE. NOTED THAT THERE WAS SOME BLEEDING AT THE IV SITE. NO S/S OF INFILTRATION. PATIENT DID EVENTUALLY PULL HER IV OUT WITH CATHETER FULLY INTACT. PT EXHIBITS MILD CONFUSION. SOME OF HER RESPONSES TO QUESTIONS ARE DIFFICULT TO DETERMINE FACTUAL OR NOT. PATIENT VSS. NO DISTRESS NOTED AT THIS TIME.
[2021-01-23 05:16] LABS: ABSOLUTE NEUTROPHILS 2.8 thou/uL (1.4-8.2); BASOPHILS 1.1 % (0.0-2.0); EOSINOPHILS 0.1 % (0.0-3.0); HEMATOCRIT 33.4 % (37.0-47.0); HEMOGLOBIN 11.1 gm/dL (12.0-15.0); LYMPHOCYTES 14.1 % (24.0-44.0); MCHC 33.2 g/dL (28.0-37.0); MCV 84.2 fL (80.0-100.0); MONOCYTES 1.4 % (1.0-8.0); PLATELET COUNT 342 thou/uL (150-400); POLYS 83.3 % (36.0-66.0); RBC 3.97 mil/uL (4.20-5.00); RDW 16.1 % (10.5-14.5); WBC 3.4 thou/uL (4.0-11.0)
[2021-01-23 05:47] LABS: CALCIUM 6.6 mg/dL (8.5-10.1); CREATININE 20.5 mg/dL (0.6-1.0); MAGNESIUM 2.5 mg/dL (1.8-2.4); PHOSPHORUS 7.5 mg/dL (2.5-4.9)
[2021-01-23 06:14] LABS: POTASSIUM 7.4 mmol/L (3.5-5.1)
[2021-01-23 07:06] VITALS: BP 158/58
[2021-01-23 07:30] VITALS: BP 177/98
--- NOTE | 2021-01-23 10:20 | EKG ---
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
[2021-01-23 12:00] VITALS: BP 166/82
--- NOTE | 2021-01-23 13:51 | 2DMMODE ---
[facility] [place] [address] [place] [address] 2 D/M-MODE ECHOCARDIOGRAM Name: NADER BOYD Room #: 206-P ADM IN M.R.#: [id number] Admission: 01/22/21 Attend Phys: Nagi Delong MD Discharge: Date of : 32 Report #: [id number] THIS REPORT FOR: cc: FAM - Family physician unknown FAM - Family physician unknown Boyd Peoples MD [facility] ~ ADDENDUM APPROVED REPORT Study performed: 01/23/2021 13:02:54 EXAM: Comprehensive 2D, Doppler, and color-flow Echocardiogram Patient Location: Bedside Room #: 206 Status: routine BSA: 1.65 HR: 79 bpm BP: 177/98 mmHg Rhythm: Sinus. Arrhythmia. Other Information Study Quality: Good Indications Short of breath, cough, chest pain. Hx: CABG, COPD, ESRD, CVA, HTN, HLP, DM. 2D Dimensions IVSd: 8.27 (7-11mm) LVOT Diam: 20.07 (18-24mm) LVDd: 42.32 mm PWd: 9.87 (7-11mm) LVDs: 28.65 (25-40mm) Left Atrium: 39.95 (27-40mm) Aortic Root: 29.59 mm Volumes Left Atrial Volume (Systole) Single Plane 4CH: 47.07 mL Single Plane 2CH: 52.94 mL LA ESV Index: 32.00 mL/m2 Aortic Valve AoV Peak Jann.: 1.57 m/s AO Peak Gr.: 9.86 mmHg LVOT Max P.39 mmHg LVOT Max V: 0.92 m/s MURPHY Vmax: 1.86 cm2 [facility] [address] [address] 2 D/M-MODE ECHOCARDIOGRAM Name: NADER BOYD Room #: 206-P [facility] IN ..#: [id number] Admission: 01/22/21 Attend Phys: Yannick Cheke Discharge: Date of : 32 Report #: [id number] Mitral Valve E/A Ratio: 0.8 MV Decel. Time: 205.46 ms MV E Max Jann.: 0.70 m/s MV A Jann.: 0.86 m/s MV PHT: 59.58 ms IVRT: 51.90 ms Pulmonary Valve PV Peak Jann.: 1.07 m/s PV Peak Gr.: 4.54 mmHg Tricuspid Valve TR Peak Jann.: 3.88 m/s RAP Estimate: 5.00 mmHg TR Peak Gr.: 60.13 mmHg PA Pressure: 65.00 mmHg Left Ventricle The left ventricle is normal size. There is normal LV segmental wall motion. There is normal left ventricular wall thickness. Left ventricular systolic function is normal. LVEF is 65%. Mild diastolic dysfunction is present (impaired relaxation pattern). Right Ventricle The right ventricle is normal size. The right ventricular systolic function is normal. Atria Mild biatrial enlargement. Aortic Valve The Aortic valve is sclerotic. No aortic regurgitation is present. There is no aortic valvular stenosis. Mitral Valve The mitral valve is normal in structure. Trace mitral regurgitation. No evidence of mitral valve stenosis. Tricuspid Valve The tricuspid valve is normal in structure. Moderate to severe tricuspid regurgitation. Estimated PAP is 65mmHg. Pulmonic Valve The pulmonary valve is normal in structure. Trace pulmonic regurgitation. [facility] [address] [place] [address] 2 D/M-MODE ECHOCARDIOGRAM Name: NADER BOYD Room #: 206-P ADM IN M.R.#: [id number] Admission: 01/22/21 Attend Phys: Yannick Cheek Discharge: Date of : 34 Report #: [id number] Great Vessels The aortic root is normal in size. Ascending aorta is not well visualized. IVC is normal in size and collapses >50% with inspiration. Pericardium There is no pericardial effusion. <Conclusion> Normal left ventricle size/wall thickness Ejection fraction 60-65% Grade 1 diastolic dysfunction Normal right ventricular size/function Mild biatrial enlargement Color-flow Doppler study was performed of the aortic/mitral/tricuspid/pulmonary valve Mild aortic valve sclerosis without stenosis Trace tricuspid valve insufficiency Moderate to severe tricuspid valve insufficiency Severe pulmonary hypertension PA pressure estimated 65 mmHg No pericardial effusion Normal aortic root size <ELECTRONICALLY SIGNED> By: Boyd Peoples MD, FACC 01/23/21 1351 1351 135 Boyd Peoples MD, [facility] /INF
[2021-01-23 15:30] VITALS: BP 152/69
--- NOTE | 2021-01-23 16:22 | NUR ---
Case opened to follow for dc planning. Pt admitted and not feeling well after missing 3 dialysis treatments. Pt A&Ox3 but forgetful and unable to stay on subject for conversation about missing her treatments. She confirms she lives with her son Dinesh who works 2 department director jobs. She is in an apt and has extended family in the same building that check on her. She is indep with gait and adl's and occasionally uses a cane. She goes to [facility] and utilizes share a fare transport. [employer] spoke with her son Oscar and he reports that she refused to go out last Tuesday due to upset stomach and diarrhea and again on Tuesday and Tuesday. By she needed to come to the hospital. He is concerned that she is tired of dialysis and may want to consider stopping tx. He would like info on hospice should she decide she no longer wants to continue tx. The pt as dc'd home in August with [facility] however she refused their admission visit. They can accept her at [facility] is HH is needed at [facility]. Therapy evals are pending. Info packet and hospice brochures left at nurse station for son to pickup tomorrow. Care team updated. Will follow.
--- NOTE | 2021-01-23 17:34 | NUR ---
PT RESTING COMFORTABLY. HD TODAY, 3.2L OFF PER HD RN, FROM [id number]. PT AFEBRILE, OLIGUREA, NO BM (ABDOMEN FIRM AND HYPOACTIVE), FAIR APPETITE. ECHOCARDIOGRAM COMPLETED AT BEDSIDE. PT BEGAN TO HAVE ACTIVE VISUAL HALLUCINATIONS, RN TO OBTAIN HEAD CT W/O. PT AND FAMILY HAVE BEEN THOUROUGHLY UPDATED AND EDUCATED ON PT CONDITION AND POC. PT SLOWLY PROGRESSING TOWARDS POC. FAMILY WOULD LIKE INFORMATION ON POSSIBILITY OF PALLIATIVE CARE. A PACKET WAS OBTAINED FROM CASE MANAGEMENT TO GIVE TO FAMILY TOMORROW.
[2021-01-23 19:41] VITALS: BP 137/69
[2021-01-24 05:26] VITALS: BP 142/59
[2021-01-24 05:43] LABS: CALCIUM 7.4 mg/dL (8.5-10.1)
[2021-01-24 05:44] LABS: POTASSIUM 4.5 mmol/L (3.5-5.1)
[2021-01-24 07:31] VITALS: BP 144/58
--- NOTE | 2021-01-24 07:55 | NUR ---
ASSUMED PATIENT CARE AT 1900H.PATIENT IS ALERT AND ORIENTED TO SELF BUT CONFUSED.ON ROOM AIR BREATHING SPONTANEOUSLY.NOT IN PAIN OR DISTRESS.WITH AV FISTULATA LEFT UPPER FOREARM INTACT.CT SCAN DONE, REPORT REVIWED BY NURSE PRACTICIONER.ALL NEEDS ATTENDED. FALL PREVENTION MEASURES MAINTAINED.
[2021-01-24 11:00] VITALS: BP 146/41
--- NOTE | 2021-01-24 14:28 | NUR ---
PT ALERT AND ORIENTED TIMES TWO. VSS. PT DENIES PAIN/SOA. PT TOLERATES MEDS AND MEALS. PT UP WITH STANDBY ASSIST. SPOKE WITH PT SON JAMES TO UPDATE ON PT CARE. WILL CONTINUE TO MONITOR.
[2021-01-24 15:16] VITALS: BP 116/46
[2021-01-24 20:15] VITALS: BP 140/53
--- NOTE | 2021-01-25 05:12 | NUR ---
RECEIVED THE PATIENT ON BED,ORIENTED TO SELF BUT CONFUSED.ON ROOM AIR BREATHING SPONTANEOUSLY.WITH AV FISTULA AT LEFT UPPER ARM INTACT.NOT IN PAIN OR DISTRESS.REORIENTED PATIENT WHEN CONFUSED.FALL PREVENTION MEASURES MAINTAINED.ALL NEEDS ATTENDED.
[2021-01-25 05:33] LABS: ABSOLUTE NEUTROPHILS 3.3 thou/uL (1.4-8.2); BASOPHILS 0.2 % (0.0-2.0); EOSINOPHILS 0.6 % (0.0-3.0); HEMATOCRIT 32.9 % (37.0-47.0); HEMOGLOBIN 10.7 gm/dL (12.0-15.0); LYMPHOCYTES 13.6 % (24.0-44.0); MCH 27.2 pg (26.0-34.0); MCHC 32.6 g/dL (28.0-37.0); MCV 83.5 fL (80.0-100.0); MONOCYTES 16.4 % (1.0-8.0); PLATELET COUNT 343 thou/uL (150-400); POLYS 69.2 % (36.0-66.0); RBC 3.94 mil/uL (4.20-5.00); RDW 16.4 % (10.5-14.5); WBC 4.7 thou/uL (4.0-11.0)
[2021-01-25 05:41] VITALS: BP 150/61
[2021-01-25 05:44] LABS: POTASSIUM 4.5 mmol/L (3.5-5.1)
[2021-01-25 05:47] LABS: CREATININE 11.6 mg/dL (0.6-1.0)
[2021-01-25] MEDS ORDERED: METOPROLOL TART25 MG PO (07:38)
[2021-01-25] MEDS ORDERED: PREDNISONE 20 M20 M1 PO (07:39)
[2021-01-25 09:09] VITALS: BP 151/81
[2021-01-25 12:08] VITALS: BP 151/81
--- NOTE | 2021-01-27 09:46 | NUR ---
Followup call rec'd from pt's son Oscar regarding pt's dc Thursday 01/25. They would like hh services arranged per Sully ASTORGA. Referral and orders faxed. They report pt did go to dialysis yesterday and family was with her to ensure she caught her share a fare ride. They are planning to setup a meeting with her renal dr to disscuss pall care manpower development manager visits or hospice referral should the pt wish to discontinue txs in the future. Encouragement given to family to setup a meeting with the renal dr and to increase supervision and support in the home due to memory issues and confusion. Sully ASTORGA to confirm start of care visit with son Oscar so he can be there during their intial visit.
== END 2021-01-25 13:42 | disposition home or self-care (01) | DRG 280 ==
LOC: ER 10:54 → 2N 15:21 → EROBS 15:21 → 2N 01-23 06:18
PROVIDERS: Emergency Medicine; Internal Medicine; Nurse Practitioner; Nurse Practitioner Family; ADMIT Hospitalist; ATTEND Hospitalist
PROC: 5A1D70Z Performance of Urinary Filtration, Intermittent, Less than 6 Hours Per Day (ICD-10-PCS; principal; 2021-01-23)
PROC: 5A1D70Z Performance of Urinary Filtration, Intermittent, Less than 6 Hours Per Day (ICD-10-PCS; 2021-01-25)
DX: I13.2 Hypertensive heart and chronic kidney disease with heart failure and with stage 5 chronic kidney disease, or end stage renal disease (principal); I21.A1 Myocardial infarction type 2; N18.6 End stage renal disease; J96.21 Acute and chronic respiratory failure with hypoxia; J98.11 Atelectasis; E87.5 Hyperkalemia; I16.0 Hypertensive urgency; R77.8 Other specified abnormalities of plasma proteins; Z20.822 Contact with and (suspected) exposure to COVID-19; J43.9 Emphysema, unspecified; E78.5 Hyperlipidemia, unspecified; E11.22 Type 2 diabetes mellitus with diabetic chronic kidney disease; I25.10 Atherosclerotic heart disease of native coronary artery without angina pectoris; F03.90 Unspecified dementia, unspecified severity, without behavioral disturbance, psychotic disturbance, mood disturbance, and anxiety; R91.1 Solitary pulmonary nodule; I07.1 Rheumatic tricuspid insufficiency; I27.20 Pulmonary hypertension, unspecified; K59.00 Constipation, unspecified; K21.9 Gastro-esophageal reflux disease without esophagitis; D63.8 Anemia in other chronic diseases classified elsewhere; I50.9 Heart failure, unspecified; R07.89 Other chest pain; Z95.1 Presence of aortocoronary bypass graft; Z86.73 Personal history of transient ischemic attack (TIA), and cerebral infarction without residual deficits; Z87.891 Personal history of nicotine dependence; Z99.81 Dependence on supplemental oxygen; Z91.14 Patient's other noncompliance with medication regimen; Z91.15 Patient's noncompliance with renal dialysis; Z79.82 Long term (current) use of aspirin; Z79.899 Other long term (current) drug therapy
CPT/HCPCS: 10081; 32100

== ENCOUNTER 2021-07-11 18:13 | Inpatient (IN) | payer OTHER ==
[~2021-07-11] VITALS: Ht 162.6 cm; Wt 56.7 kg
[~2021-07-11 18:13] MED LIST changes: +PREDNISONE 20 M20 M1 PO
[2021-07-11 18:15] VITALS: BP 196/70
[2021-07-11 19:17] LABS: HEMOGLOBIN 6.9 gm/dL (12.0-15.0)
[2021-07-11 19:19] LABS: ABSOLUTE NEUTROPHILS 5.2 thou/uL (1.4-8.2); BASOPHILS 0.8 % (0.0-2.0); EOSINOPHILS 6.5 % (0.0-3.0); LYMPHOCYTES 11.2 % (24.0-44.0); MCH 27.5 pg (26.0-34.0); MCHC 31.4 g/dL (28.0-37.0); MCV 87.4 fL (80.0-100.0); MONOCYTES 21.6 % (1.0-8.0); PLATELET COUNT 268 thou/uL (150-400); POLYS 59.9 % (36.0-66.0); RBC 2.52 mil/uL (4.20-5.00); RDW 17.5 % (10.5-14.5); WBC 8.7 thou/uL (4.0-11.0)
[2021-07-11 19:27] LABS: CALCIUM 8.7 mg/dL (8.5-10.1); CREATININE 6.8 mg/dL (0.6-1.0); POTASSIUM 4.6 mmol/L (3.5-5.1)
[2021-07-11 19:38] LABS: ALBUMIN 3.1 g/dL (3.4-5.0); MAGNESIUM 2.3 mg/dL (1.8-2.4); TOTAL BILIRUBIN 0.3 mg/dL (0.2-1.0); TOTAL PROTEIN 7.4 g/dL (6.4-8.2)
[2021-07-11 21:13] LABS: APTT 25.9 Seconds (24.5-32.8); PROTIME 10.9 Seconds (10.5-12.1)
[2021-07-12 03:27] VITALS: BP 139/64; BP 160/83
--- NOTE | 2021-07-12 04:40 | NUR ---
PT ARRIVED ON UNIT FROM ER AT 2200. ADMITTED WITH ANEMIA AND ESRD. I UNIT PRBS TRANSFUSED. RESTING COMFORTABLY. NO NEEDS VOICED. CALL LIGHT WITHIN REACH. FREQUENT OBSERVATION.
[2021-07-12 05:17] VITALS: BP 172/64
[2021-07-12 08:00] VITALS: BP 141/62
[2021-07-12 09:48] LABS: HEMATOCRIT 24.5 % (37.0-47.0); HEMOGLOBIN 8.1 gm/dL (12.0-15.0); MCH 28.3 pg (26.0-34.0); MCHC 33.2 g/dL (28.0-37.0); MCV 85.3 fL (80.0-100.0); RBC 2.88 mil/uL (4.20-5.00); RDW 16.2 % (10.5-14.5); WBC 6.7 thou/uL (4.0-11.0)
[2021-07-12 10:06] LABS: CALCIUM 8.1 mg/dL (8.5-10.1); POTASSIUM 4.4 mmol/L (3.5-5.1)
[2021-07-12 10:08] LABS: CREATININE 7.9 mg/dL (0.6-1.0)
--- NOTE | 2021-07-12 10:12 | NUR ---
ASSUMED CARE OVER PATIENT THIS MORNING. TO COMPAINTS OF PAIN/N/V, PATIENT SITTING AT THE SIDE OF BED. FINISHED 1 UNIT OF BLOOD ON THE NIGHTSHIFT JUST PRIOR TO OUT HAND OFF. WILL CONTINUE TO MONITOR AND UPDATE NOTE NEEDED.
[2021-07-12] MEDS ORDERED: METOPROLOL TART25 MG PO (18:08)
[2021-07-12 18:37] VITALS: BP 141/62
--- NOTE | 2021-07-13 07:38 | EKG ---
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: [id number] : 1930 Requested By: Omega Negrete Order Number: [id number] MD: Boyd Peoples Measurements Intervals [place] Rate: 86 P: 54 [place]: 154 QRS: 42 QRSD: 79 T: 64 QT: 364 QTc: 436 Interpretive Statements Sinus rhythm Anterior infarct, old Baseline wander in lead(s) II Compared to ECG 01/22/2021 14:07:54 No significant changes Electronically Signed On 07-13-2021 7:38:06 TENNIS BALL COVER CEMENTER by Boyd Peoples [email or web address] <ELECTRONICALLY SIGNED> By: Boyd Peoples MD, [facility] 07/13/21 0738 21 21 Boyd Peoples MD, [facility] /EPI
== END 2021-07-12 19:15 | disposition home or self-care (01) | DRG 811 ==
LOC: ER 18:13 → EROBS 20:56 → 4S 23:25
PROVIDERS: Nurse Practitioner Family; Physician Assistant; ADMIT Internal Medicine Nephrology; ATTEND Internal Medicine Nephrology
PROC: 30233N1 Transfusion of Nonautologous Red Blood Cells into Peripheral Vein, Percutaneous Approach (ICD-10-PCS; principal; 2021-07-12)
DX: D64.9 Anemia, unspecified (principal); N18.6 End stage renal disease; I12.0 Hypertensive chronic kidney disease with stage 5 chronic kidney disease or end stage renal disease; Z99.2 Dependence on renal dialysis; Z20.822 Contact with and (suspected) exposure to COVID-19; F03.90 Unspecified dementia, unspecified severity, without behavioral disturbance, psychotic disturbance, mood disturbance, and anxiety; E78.5 Hyperlipidemia, unspecified; E11.22 Type 2 diabetes mellitus with diabetic chronic kidney disease; J43.9 Emphysema, unspecified; I25.10 Atherosclerotic heart disease of native coronary artery without angina pectoris; Z95.1 Presence of aortocoronary bypass graft; Z87.891 Personal history of nicotine dependence
CPT/HCPCS: 10100